=== PATIENT | male | born 1950 | race Caucasian/White ===

== ENCOUNTER 2019-05-28 09:01 | Outpatient (CLI) | payer MEDICARE, OTHER ==
--- NOTE | 2019-05-28 09:40 | ULT ---
Hepatic sonogram with duplex evaluation HISTORY: Abnormal liver function tests. Findings: Gallbladder is well distended. Slightly thickened wall is nonspecific in the setting of sav e fluid and hepatitis. No stones are apparent. Common duct is 0.5 cm. Liver demonstrates a nodular contour and is diffusely echogenic. No focal masses. Small amount of sav e fluid is present throughout the abdomen. Spleen measures up to 10.6 cm. No focal abnormalities. Good color and spectral Doppler flow within th e hepatic and splenic arteries. Portal venous flow is towards the liver. Hepatic venous flow is towards the IVC. IMPRESSION: Hepatic steatosis. Nodular contour of the liver may be related to developing cirrhosis. Small amount of ascites evident. No other findings of portal venous hypertension. Appropriate portal venous flow. No evidence of gallstones or biliary obstruction.
== END 2019-05-28 09:02 | disposition home or self-care (01) ==
LOC: SCSULT 09:01
PROVIDERS: ATTEND Internal Medicine Gastroenterology
DX: R19.7 Diarrhea, unspecified (principal); R94.5 Abnormal results of liver function studies; K76.0 Fatty (change of) liver, not elsewhere classified; R18.8 Other ascites
CPT/HCPCS: 76705

== ENCOUNTER 2019-06-19 07:26 | Outpatient (CLI) | payer MEDICARE, OTHER ==
[2019-06-19 07:57] LABS: Estimated GFR-MDRD - POC Greater than 90
--- NOTE | 2019-06-19 08:44 | CT ---
CT Abdomen Pelvis W WO con History: Abdominal pain. R19.7 Comparison: Ultrasound hepatic Doppler May 28, 2019. CT abdomen pelvis 2016 Findings: Lung bases are clear. No pericardial effusion. Similar to the comparison CT examination are numerous dilated loops of small bowel. This dilatation e xtends to the distal bowel with focal transition point in the midline lower abdomen with adjacent calcification series 5 image 73. There is an indwelling suprapubic catheter. Moderate volume ascites. Spleen is unremarkable. There are a few splenic granulomas. Pancreas is unremarkable. No retroperitoneal periaortic adenopathy. Moderate diverticular disease sigmoid colon. Cirrhotic contour of the liver. No abnormal hepatic arterial enhancing mass. No pseudocapsule. Portal vein is patent. Mild facet arthrosis lower lumbar spine. No acute osseous abnormality. The pancreas is normal. Adrenal glands are unremarkable. No hydronephrosis. Impression: 1. No hepatic mass. 2. Similar from 2016 chronic partial small bowel obstruction with transition point in the midline low er abdomen the mid ileum. 3. Large volume ascites and mild third spacing of fluid.
[2019-06-19] MEDS ORDERED: Iopamidol 370 76% 100 ML VIAL ONE (09:00)
== END 2019-06-19 07:27 | disposition home or self-care (01) ==
LOC: SCSCT 07:26
PROVIDERS: ATTEND Internal Medicine Gastroenterology
DX: K86.81 Exocrine pancreatic insufficiency (principal); R94.5 Abnormal results of liver function studies; K74.60 Unspecified cirrhosis of liver; R19.7 Diarrhea, unspecified; R18.8 Other ascites
CPT/HCPCS: 74178; 82565; Q9967

== ENCOUNTER 2019-08-01 06:55 | Day surgery (SDC) | payer MEDICARE, OTHER ==
[2019-07-31 13:43] VITALS: BMI 21.4
[2019-08-01 10:37] LABS: #Eosinphils 0.1 thou/uL (0.0-0.7); #Lymphocytes 1.5 thou/uL (1.20-3.40); #Monocytes 0.6 thou/uL (0.11-0.59); #Neutrophils 3.9 thou/uL (1.40-6.50); %Basophils 0.8 % (0.0-1.0); %Lymphocytes 24.3 % (21.0-51.0); %Monocytes 9.4 % (0.0-10.0); %Neutrophils 64.6 % (42.0-75.0); Hemoglobin 12.4 g/dL (14.0-18.0); Mean Corpuscular HGB CONC 32.9 g/dL (32.0-36.0); Mean Corpuscular Hemoglobin 31.1 pg (27.0-31.0); Mean Corpuscular Volume 94.7 fL (78.0-98.0); Mean Platelet Volume 6.6 fL (7.4-10.4); Platelet Count 168 thou/uL (130-400); RBC Distribution Width 13.3 % (11.5-14.5); Red Blood Cell (RBC) Count 3.98 mill/uL (4.70-6.10); White Blood Cell (WBC) Count 6.1 thou/uL (4.8-10.8)
[2019-08-01 10:48] LABS: Anion Gap 16 mmol/L (10-20); BUN (Urea Nitrogen) 23 mg/dL (8.4-25.7); Calc. Creatinine Clearance 68 mL/min (70-130); Calcium 8.8 mg/dL (7.8-10.44); Carbon Dioxide 21 mmol/L (23-31); Chloride 107 mmol/L (98-107); Estimated GFR-MDRD 79; Glucose 74 mg/dL (80-115); Potassium 3.9 mmol/L (3.5-5.1); Sodium 140 mmol/L (136-145)
== END 2019-08-01 11:00 | disposition home or self-care (01) ==
LOC: SDC 06:55
PROVIDERS: ATTEND Internal Medicine Gastroenterology
DX: K86.81 Exocrine pancreatic insufficiency (principal); K74.69 Other cirrhosis of liver; R19.7 Diarrhea, unspecified; Z53.8 Procedure and treatment not carried out for other reasons; Z79.899 Other long term (current) drug therapy; Z88.2 Allergy status to sulfonamides; Z88.8 Allergy status to other drugs, medicaments and biological substances
CPT/HCPCS: 36415; 80048; 85025

== ENCOUNTER 2020-06-22 10:01 | Inpatient (IN) | payer MEDICARE, OTHER ==
[2020-06-22 11:04] LABS: #Lymphocytes 1.8 thou/uL (1.20-3.40); #Monocytes 0.8 thou/uL (0.11-0.59); #Neutrophils 7.2 thou/uL (1.40-6.50); %Basophils 0.4 % (0.0-1.0); %Eosinophils 0.3 % (0.0-10.0); %Lymphocytes 18.4 % (21.0-51.0); %Monocytes 7.7 % (0.0-10.0); %Neutrophils 73.2 % (42.0-75.0); Mean Corpuscular HGB CONC 32.3 g/dL (32.0-36.0); Mean Corpuscular Hemoglobin 30.8 pg (27.0-31.0); Mean Corpuscular Volume 95.5 fL (78.0-98.0); Mean Platelet Volume 7.3 fL (7.4-10.4); Platelet Count 157 thou/uL (130-400); RBC Distribution Width 13.4 % (11.5-14.5); Red Blood Cell (RBC) Count 3.58 mill/uL (4.70-6.10); White Blood Cell (WBC) Count 9.8 thou/uL (4.8-10.8)
[2020-06-22 11:56] LABS: ALT (SGPT) 64 U/L (8-55); AST (SGOT) 90 U/L (5-34); Albumin 3.6 g/dL (3.4-4.8); Alkaline Phosphatase 93 U/L (40-110); Anion Gap 22 mmol/L (10-20); BUN (Urea Nitrogen) 48 mg/dL (8.4-25.7); Bilirubin, Total 0.5 mg/dL (0.2-1.2); Calc. Creatinine Clearance 0 mL/min (70-130); Calcium 7.6 mg/dL (7.8-10.44); Carbon Dioxide 13 mmol/L (23-31); Chloride 113 mmol/L (98-107); Estimated GFR-MDRD 31; Globulin 2.7 g/dL (2.4-3.5); Glucose 92 mg/dL (83-110); Lipase 26 U/L (8-78); Potassium 3.9 mmol/L (3.5-5.1); Protein, Total 6.3 g/dL (5.8-8.1); Sodium 144 mmol/L (136-145)
--- NOTE | 2020-06-22 12:17 | RAD ---
EXAM: Single view of the chest HISTORY: Bowel obstruction COMPARISON: 07/19/2019 FINDINGS: Single view of the chest shows a normal sized cardiomediastinal silhouette. There is a pac emaker with its tip in the right ventricle. There is no evidence of consolidation, mass, or pleural effusion. No acute osseous abnormality. Air-filled loops of bowel are seen beneath the diaphr agms. IMPRESSION: No evidence of acute cardiopulmonary disease
--- NOTE | 2020-06-22 13:40 | CT ---
CT Abdomen Pelvis WO Con History: Bowel obstruction Comparison: Abdomen pelvis CT June 2019 Findings: Lung bases relatively clear. No significant pericardial effusion. Relative to the prior 2 examinations the proximal small bowel dilatation has progressed. Small bowel obstruction to the left lower quadrant is again seen to is expected to be a stricture. Proximal small bowel is massively dilated up to 7.5 cm, worse from the comparison exam. No definite free intraperitoneal gas. Distal small bowel is nondilated. The colon is not dilated. No significant mesenteric edema. Calcified granulomas of the spleen. Pancreas atrophy. Gallbladder is mildly distended. There is unrem arkable. Aortic contour is nonaneurysmal and there is mild focal infrarenal abdominal aortic ectasia measuring up to 2.7 cm. Indwelling suprapubic catheter. Impression: Progressive small bowel obstruction of the left lower quadrant of the abdomen to what is felt to be a stricture. Surgical consultation is advised as a small bowel measures up to 7.5 cm in size. Patient is at risk for small bowel vascular compromise. On today's exam there is concern for a closed loop component to this obstruction as there is tethering and narrowing through what appears to be an internal hernia best seen on coronal images 55-62
[2020-06-22 15:12] LABS: Bacteria/HPF 4+ HPF (None Seen); Bilirubin Negative (Negative); Blood, Urine 3+ (Negative); Clarity Extra Turbid (Clear); Glucose, Urine (Dipstick) Normal (Negative); Ketone, Urine Trace mg/dL (Negative); Leukocyte 500 Leu/uL (Negative); Nitrite Negative (Negative); Protein, Urine (Dipstick) 200 mg/dL (Neg-Trace); RBC/HPF Greater than 50 HPF (0-3); Specific Gravity, Urine 1.024 (1.002-1.036); Transitional Epithelial 0-3 HPF (None Seen); Urobilinogen Normal mg/dL (Less than 2); WBC/HPF Greater than 50 HPF (0-3); pH, Urine 5.5 (5.0-9.0)
[2020-06-22] MEDS ORDERED: cefTRIAXone\\ROCEPHIN 2 GM VIAL ONE (15:38)
--- NOTE | 2020-06-22 15:47 | PDOC.HHP ---
Hospitalist HPI - History of Present Illness vomiting, diarrhea, dehydration History of Present Illness: Mr. Woodall is a 69 yo male with a PMH of bowel obstructions, CAD, cirrhosis, pancreatic insufficiency, GI bleeding and prostate cancer presents to the ED with a 1 day history of diarrhea and vomiting. He states it started with hiccups which then was followed by vomiting on Monday evening. He had eaten eggs, sausage and hashbrowns with gravy at a waffle house earlier that day and states this is not his usual diet regimen. His vomit initially contained food particles, but later became watery and a light brown color. He vomited a total of 4 times with his most recent episode being this morning at 4 am. He had some clear liquids after that with no subsequent vomiting. His vomiting is typically worsened by feeling hot, but today he feels cold. He states he is usually cold so when he started feeling warm is when the vomiting got worse. Yesterday, he began having diarrhea along with the vomiting. He describes it as a light brown color and mostly watery. He has chronic diarrhea and usually has two loose bowel movements daily, but has been going 6-8 times a day. He denied blood in his stools. He denied any recent antibiotic use. He has some abdominal pain associated with it. He reports an 8.5 lb weight loss since Monday evening. He did not take any medications to try and help his symptoms because of his long history of bowel obstruction and not wanting to risk disrupting that further. He's had similar episodes in the past and staying on a liquid diet works best for him. He denies fevers, but reports chills, low urine output, light headedness. He denies recent travel history. He denies sick contacts. ED Course: The patient presented with a blood pressure of 78 systolic. The rest of his vitals were normal. Labs showed a creatinine of 2.13, AST 90 and ALT 64. Urinalysis showed ketones, 500 leukocyte esterase, > 50 WBC, bacteria and h yaline casts. Chest X ray was normal. CT abdomen/pelvis showed progressive small bowel obstruction of the left lower quadrant. The patient received 1.5 L of fluids for dehydration. Pt. was given a dose of rocephin. General surgery was consulted and recommended no intervention currently Hospitalist ROS - Review of Systems Constitutional: reports: chills. denies: fever Eyes: denies: vision change, eyelid inflammation ENT: denies: throat pain Respiratory: reports: SOB with excertion. denies: cough, pleuritic pain Cardiovascular: reports: light headedness (when standing/sitting up too fast). denies: chest pain Gastrointestinal: reports: vomiting (this am), diarrhea. denies: hematochezia Genitourinary: denies: dysuria, frequency, hematuria Musculoskeletal: denies: other (headaches) Skin: denies: rash, lesions Neurological: denies: weakness, numbness Hospitalist History - Past Medical History Source: patient Cardiac: reports: CAD, CHF, Valve insufficiency Pulmonary: reports: heart attack [employer]: reports: Migraine (Bowel Obstruction) Heme/Onc: reports: Cancer (Prostatatic) Hepatobiliary: reports: Cirrhosis (Nonalcoholic) Renal/: reports: Chronic renal insuff Endocrine: reports: Diabetes (resolved) - Past Surgical History Past Surgical History: reports: Appendectomy Other Surgical History: back surgery L3-L4 - Family History Other Family History: father of lymphoma - Social History Smoking Status: Never smoker Alcohol: reports: None Drugs: reports: none Living Situation: With Family Domestic Violence: Negative Activity level: independent ambulation - Exam General Appearance: NAD, awake alert Eye: anicteric sclera ENT: normocephalic atraumatic, no oropharyngeal lesions, moist mucosa Neck: supple, symmetric, no JVD, no thyromegaly, no lymphadenopathy Heart: RRR, no murmur, no gallops, no rubs, normal peripheral pulses Respiratory: CTAB, no wheezes, no rales, no ronchi, normal chest expansion, no tachypnea Gastrointestinal: soft, non-tender, no palpable masses, no hepatomegaly, no splenomegaly, distended Gastrointestinal - other findings: intermittent hyperactive bowel sounds in RLQ Extremities: no cyanosis, 2+ LE edema Skin: no rashes, tenting Neurological: normal sensation to touch, no new deficit Psychiatric: normal affect, normal behavior, A&O x 3 Hospitalist Results - Labs Result Diagrams: 06/22/20 10:40 06/22/20 10:40 Lab results: WBC 9.8 thou/uL (4.8-10.8) 06/22/20 10:40 Hgb 11.0 g/dL (14.0-18.0) L 11/09/20 10:40 Hct 34.2 % (42.0-52.0) L 06/22/20 10:40 MCV 95.5 fL (78.0-98.0) 06/22/20 10:40 Plt Count 157 thou/uL (130-400) 06/22/20 10:40 Neutrophils % 73.2 % (42.0-75.0) 06/22/20 10:40 Sodium 144 mmol/L (136-145) 06/22/20 10:40 Potassium 3.9 mmol/L (3.5-5.1) 06/22/20 10:40 Chloride 113 mmol/L (98-107) H 06/22/20 10:40 Carbon Dioxide 13 mmol/L (23-31) L 06/22/20 10:40 BUN 48 mg/dL (8.4-25.7) H 06/22/20 10:40 Creatinine 2.13 mg/dL (0.7-1.3) H 06/22/20 10:40 Glucose 92 mg/dL (83-110) 06/22/20 10:40 Calcium 7.6 mg/dL (7.8-10.44) L 06/22/20 10:40 Total Bilirubin 0.5 mg/dL (0.2-1.2) 06/22/20 10:40 AST 90 U/L (5-34) H 06/22/20 10:40 ALT 64 U/L (8-55) H 06/22/20 10:40 Alkaline Phosphatase 93 U/L (40-110) 06/22/20 10:40 Serum Total Protein 6.3 g/dL (5.8-8.1) 06/22/20 10:40 Albumin 3.6 g/dL (3.4-4.8) 06/22/20 10:40 Lipase 26 U/L (8-78) 06/22/20 10:40 Urine Ketones Trace mg/dL (Negative) A 06/22/20 12:55 Urine Blood 3+ (Negative) A 06/22/20 12:55 Urine Nitrite Negative (Negative) 06/22/20 12:55 Ur Leukocyte Esterase 500 Isaiah/uL (Negative) A 06/22/20 12:55 Urine RBC Greater than 50 HPF (0-3) A 06/22/20 12:55 Urine WBC Greater than 50 HPF (0-3) A 06/22/20 12:55 Ur Squamous Epith Cells 4-6 HPF (0-3) A 06/22/20 12:55 Urine Bacteria 4+ HPF (None Seen) A 06/22/20 12:55 Hospitalist H&P A/P - Plan Plan: ECHO 2016: severe decrease in left systolic function, EF 20-25%. Global hypokinesis. Mild to moderate aortic stenosis with peak gradient of 19 mm Hg. Mild MR. Mild MR. Holbrook of left ventricle suggestive of thrombus CT abdomen: progressive small bowel obstruction of the left lower quadrant , small bowel measures 7.5 cm in size. Chest X-ray: no acute disease Mr. Woodall is a 69 yo male with a PMH of bowel obstructions, CAD, cirrhosis, pancreatic insufficiency, GI bleeding, and prostate cancer presents to the ED with a 1 day history of diarrhea, vomiting and dehydration. #Acute small bowel obstruction -CT abdomen showed progressive small bowel obstruction of the left lower quadrant. The small bowel measures 7.5 cm and is at risk for small bowel vascular compromise. -WBC are within normal range at 9.8 excluding a possible infectious process. - continue IV fluids, zofran. Will place on a liquid diet as tolerated #Diarrhea - likely from small bowel obstruction - stool cultures sent in the ER, will send C diff as well and ova and parasites #UTI -Urinalysis showed elevated leukocyte esterase, WBCs, RBCs, bacteria and hyaline casts. Pt. reports decreased output but no dysuria, hematuria. -Pt. given 1 dose of rocephin in the ED. Will continue. #Dehydration #Acute on Chronic hypotension (secondary to dehydration) #Oliguric Acute Kidney Injury on CKD stage III - patient's blood pressure is 70 systolic. He reports a normal BP of 80 systolic. BUN and creatinine are elevated at 48 and 2.13, respectively. Pt. reports decreased urine output. Physical exam shows skin tenting and decreased capillary refill. -Will start fluids. Clear liquids as tolerated. Hold home entresto, spironolactone and coreg. I discussed with the patient's disposition clerk Dr. Domingo who is in agreement with the plan. He states he does not believe his creatinine is normally this elevated. #Chronic systolic Heart Failure #Mild to moderate aortic stenosis #History of LV thrombus - ECHO 2016 showed EF 20-25%. He had an ECHO 04/2020 with EF of 40%. He had LV thrombus on ECHO 2016, which stated she has had cardiovascular surgeon see and it was determined to be encapsulated and not a risk of a stroke. He is not on any blood thinners. Per Dr. Domingo, patient has had significant GI bleeding in the past with anticoagulation - will hold cardiac meds for now. Continue aspirin 325 mg Chronic Pancreatic Insufficiency -Lipase 26-within normal range -Continue Creon Non-alcoholic Cirrhosis -AST 90; ALT 64, will monitor CAD -On aspirin 325 mg -Not on additional anticoagulants due to history of GI bleeding History of Prostate Cancer -Pt. currently has a suprapubic catheter in place Anemia - Hb 11.3, will monitor
[2020-06-22 17:59] VITALS: BMI 19.5
[2020-06-22] MEDS ORDERED: Sodium Chloride 0.9% 1,000 ML IV SCH (18:00)
[2020-06-22] MEDS ORDERED: Acetaminophen 325 MG TAB PO PRN (18:00)
[2020-06-22] MEDS ORDERED: Ondansetron ODT 4 MG TAB SL PRN (18:00)
[2020-06-22] MEDS ORDERED: Ondansetron PF 4 MG/2 ML Vial IVP PRN (18:00)
--- NOTE | 2020-06-22 18:59 | PDOC.FMACP ---
Advance Care Planning - Note Summary: Advanced Care Planning was discussed. The diagnosis, prognosis and goals of care were discussed. Appropriate forms and documentation to accomplish the goals of care were discussed. All questions were answered. The Palliative Care Team will be engaged to assist with completion of any outstanding forms that are needed. The patient deferred his decision making to his regarding code status. would like the patient to be a full code Time Spent (mins): 40
[2020-06-22] MEDS: Simethicone Chewable 80 MG TAB PO SCH (23:08)
--- NOTE | 2020-06-23 00:12 | CON ---
DATE OF CONSULTATION: 06/22/2020 REASON FOR CONSULTATION: Nausea, vomiting, and abnormal GI imaging showing possible small bowel obstruction. CONSULTING PROVIDER: Dr. Bossman Muniz. HISTORY OF PRESENT ILLNESS: The patient is a 69-year-old male with past medical history of coronary artery disease with ejection fraction of approximately 40% to 45%, cirrhosis secondary to congestive heart failure, pancreatic insufficiency secondary to recurrent pancreatitis, prostate cancer, and recurrent small-bowel obstructions, presenting with complaints of increased nausea, vomiting, abdominal pain, and diarrhea. He states that he was in his usual state of health until approximately Monday morning (after eating a large meal at the [facility] [employer] the day prior) when he had acute onset of midepigastric abdominal bloating/pain that he characterized as a cramping-aching type sensation that radiated to the periumbilical region, was intermittent, lasting 5 to 10 minutes in duration and reaching a severity of 5/10. The pain has been worse with eating beef, increased amounts of fiber in the past, including corn and better with having a bowel movement, passing flatus, or actual vomiting. The origin of this abdominal pain was very similar to the small bowel obstructions he has had in the past, at which point, the patient placed himself on a liquid diet in order to help relieve the obstruction as he has seen that in the past. However, this continued with nausea and vomiting x4 with the first three episodes consisting of more clear liquid and mucus. However, the last time the patient vomited, he did actually bring up solid material that was identifiable from the meal he had the day before at [facility]. He also endorsed seeing sudden onset of diarrhea that came on with nausea and vomiting, where the patient had approximately 5 to 6 semi-liquid bowel movements over the next 24 hours, but also states that he had not been taking his pancreatic enzymes during this episode and usually has more liquid stools when he misses dosing of his pancreatic enzymes. With the onset of this abdominal pain, like I said it prompted him to consume more of a liquid diet in an attempt to relieve the obstruction, but with worsening abdominal pain/pressure, he notified his outpatient GI physician (Dr. Draper), who then prompted the patient to come to the [facility] ER for further evaluation. While in the ER, he had a CT scan of the abdomen/pelvis that showed worsening of the small bowel dilatation in the left lower quadrant with small bowel measuring approximately 7.5 cm in diameter consistent with a small bowel obstruction. He was ultimately admitted to the hospital for further management of this condition with consultation of the General Surgery Service placed in the chart (although the service has not seen him at this particular point in time). Associated symptoms also include substernal pyrosis primarily with increased nausea and vomiting, increased hiccups, weight loss of approximately 8.5 pounds over the last 48 hours and decreased urine output as evidenced in his suprapubic catheter draining into this bag. Otherwise, he denies any fevers, chills, hematemesis, melena, hematochezia, dysphagia, odynophagia, or constipation. REVIEW OF SYSTEMS: A 10-category review of systems was obtained with all responses negative except for the pertinent positives as listed in HPI. PAST MEDICAL HISTORY: As per HPI. PAST SURGICAL HISTORY: Lysis of adhesions in 1959 secondary to an appendectomy that was performed the year before, tonsillectomy, back surgery, suprapubic catheter placement and defibrillator placement in 2017. SOCIAL HISTORY: He denies any tobacco, alcohol, or illicit drug use. FAMILY HISTORY: He denies any GI malignancies. OUTPATIENT MEDICATIONS: Reviewed. ALLERGIES: SULFA, SULFAMETHOXAZOLE, AND TRIMETHOPRIM. PHYSICAL EXAMINATION: VITAL SIGNS: Temperature 98.5, pulse 78, blood pressure 82/50, respiratory rate 19, saturating 98% on room air. GENERAL: The patient is lying in bed, in no acute distress. Alert and oriented x4. HEENT: Normocephalic and atraumatic. NECK: Supple. No JVD or scleral icterus noted. CARDIOVASCULAR: Regular rate and rhythm with no discernible murmurs, gallops, or rubs. RESPIRATORY: Clear to auscultation bilaterally with no discernible wheezes or rales. ABDOMEN: Normoactive bowel sounds. Soft, nondistended, mild tenderness to palpation around the suprapubic catheter site. No high-pitched bowel sounds were auscultated. EXTREMITIES: No cyanosis, clubbing, or edema. LABORATORY DATA: CBC with a white blood cell count of 9.8, hemoglobin 11, hematocrit 34.2, platelets 157. Chemistry with a sodium of 144, potassium 3.9, chloride 113, CO2 of 13, BUN 48, creatinine 2.13, glucose 92, AST 90, ALT 64, alkaline phosphatase 93, total bilirubin 0.5, lipase 26. IMAGING DATA: CT of the abdomen and pelvis was obtained on June 22, 2020, which showed relative to the prior 2 examinations, the small bowel dilatation has progressed with a small bowel obstruction seen in the left lower quadrant with the small bowel proximal to this transition point being massively dilated up to 7.5 cm, worse when compared to prior examination. There was no evidence of free intraperitoneal gas and the distal small bowel was nondilated with a nondilated colon also observed. There was no significant mesenteric edema in addition to an indwelling suprapubic catheter that was in appropriate position. Furthermore, in the impression of the read, there was concern for closed loop component to this obstruction as there was tethering and narrowing through what appears to be an internal hernia on imaging as well. 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 Partial small bowel obstruction: The patient is presenting with acute onset of nausea, vomiting, abdominal pain, and diarrhea consistent with his prior bouts of small-bowel obstructions in the past. However, on imaging obtained in the ER during this admission, he has had worsening of the small bowel obstruction with a transition point in the left lower quadrant and dilation of the proximal small bowel up to 7.5 cm in diameter. He also does have a significant metabolic acidosis going on concerning for an ischemic type process going on in that region. However, on physical examination today, the patient has normoactive bowel sounds, is soft in that region and there are no high-pitched bowel sounds to suggest an ongoing obstructive process. At this point, the clinical history seems more consistent with a partial small bowel obstruction (especially with passing flatus and having diarrhea) whereas his imaging and labs indicate more towards a complete obstructive-type process. Given his current clinical status, I am more inclined lean on the partial small bowel obstruction side of things and monitor the patient for now. He has refused NG tube placement during this admission thus far and I would continue to hold on that for now unless the patient has worsening of his nausea, vomiting, or abdominal pain. However, further imaging is required in order to re-evaluate this bowel obstruction with probable contrasted study in the morning. RECOMMENDATIONS: 1. Would place the patient n.p.o. for now in light of possible partial or complete small-bowel obstruction. 2. Would continue to hold on NG tube per patient preference. However, if the patient has worsening nausea, vomiting, or abdominal pain overnight, I would have a low threshold towards placing the tube. 3. Strongly recommend consultation of the General Surgery Service given the presence of either a partial or complete small-bowel obstruction. Given his concurrent medical history, the patient is at increased risk for periprocedural complications and may need to be transferred to [facility] in [place] if surgery is required. I would have a low threshold to transfer this patient to a tertiary care facility if he has recurrence of his nausea, vomiting, and abdominal pain. 4. Would plan for small-bowel follow-through in the morning for further evaluation of the intraluminal small bowel and re-evaluation of the obstruction at that time. We will continue to follow. Please call with any questions. Job ID: [id number]
[2020-06-23 04:44] LABS: #Eosinphils 0.1 thou/uL (0.0-0.7); #Lymphocytes 1.7 thou/uL (1.20-3.40); #Monocytes 0.6 thou/uL (0.11-0.59); #Neutrophils 5.1 thou/uL (1.40-6.50); %Basophils 0.2 % (0.0-1.0); %Eosinophils 1.2 % (0.0-10.0); %Lymphocytes 22.2 % (21.0-51.0); %Monocytes 7.9 % (0.0-10.0); %Neutrophils 68.4 % (42.0-75.0); Hemoglobin 10.1 g/dL (14.0-18.0); Mean Corpuscular HGB CONC 32.3 g/dL (32.0-36.0); Mean Corpuscular Hemoglobin 31.7 pg (27.0-31.0); Mean Corpuscular Volume 98.3 fL (78.0-98.0); Mean Platelet Volume 7.6 fL (7.4-10.4); Platelet Count 120 thou/uL (130-400); RBC Distribution Width 13.5 % (11.5-14.5); White Blood Cell (WBC) Count 7.5 thou/uL (4.8-10.8)
[2020-06-23 05:06] LABS: Anion Gap 20 mmol/L (10-20); BUN (Urea Nitrogen) 44 mg/dL (8.4-25.7); Calc. Creatinine Clearance 39 mL/min (70-130); Calcium 7.1 mg/dL (7.8-10.44); Chloride 119 mmol/L (98-107); Estimated GFR-MDRD 46; Potassium 3.3 mmol/L (3.5-5.1); Sodium 145 mmol/L (136-145)
[2020-06-23 05:10] LABS: Carbon Dioxide 9 mmol/L (23-31); Glucose 58 mg/dL (83-110)
--- NOTE | 2020-06-23 06:07 | PDOC.EVN ---
Event Note - Event Note Event Note: called by RN, labs indicting hypoglycemia and worsening metabolic acidosis. I examined the patient and his abdomen is soft, he is denying any distress. I will change his fluid to d5w and 2 amps of bicarb will check another BMP in the afternoon.
[2020-06-23] MEDS ORDERED: Sodium Bicarbonate 100 MEQ in Dextrose 5% in Water 1,000 ML IV SCH (06:15)
[2020-06-23] MEDS ORDERED: Potassium Chloride 20 MEQ in Premix Bag 1 BAG IVPB SCH (10:30)
[2020-06-23] MEDS: Aspirin Chewable 81 MG TAB PO SCH (10:49)
[2020-06-23] MEDS: Simethicone Chewable 80 MG TAB PO SCH ×2 (10:50→20:53)
[2020-06-23] MEDS: Pancrelipase DR 12,000 1 CAP PO SCH ×3 (10:50→17:25)
[2020-06-23] MEDS ORDERED: MD-Gastroview 120 ML BOT ONE (11:06)
--- NOTE | 2020-06-23 13:59 | RAD ---
Exam: Gastrografin small bowel HISTORY: Evaluate for bowel obstruction. FINDINGS: Initial wheel buffer radiograph of the abdomen demonstrates distended air-filled loop of bowel in the epigastric region. Patient was administered Gastrografin opacifies the stomach. Multiple distended small bowel loops are opacified. Contrast does pass from the stomach, through the distended colon down to the level of the rectum on the 2 hour images. IMPRESSION: Significant small bowel and colon distention. No evidence of associated high-grade obstru ction.
[2020-06-23 15:04] LABS: BUN (Urea Nitrogen) 43 mg/dL (8.4-25.7); Calc. Creatinine Clearance 38 mL/min (70-130); Estimated GFR-MDRD 43; Glucose 73 mg/dL (83-110); Potassium 4.6 mmol/L (3.5-5.1); Sodium 151 mmol/L (136-145)
[2020-06-23 15:18] LABS: Carbon Dioxide Less than 8 mmol/L (23-31); Chloride 126 mmol/L (98-107)
--- NOTE | 2020-06-23 15:27 | PDOC.HOSPP ---
- Subjective Encounter Date: 06/23/20 Encounter Time: 08:10 Subjective: F/u : small bowel obstruction The patient had a bowel movement after his small bowel follow through. He now seems to be having loose stools again. He denies nausea or vomiting. He has noticed an increase in his urine output. He states he is feeling fine today overall While walking around the room, his heart rate went up to 140 in atrial flutter. He denied palpitations. He denies any symptoms of headache, shortness of breath or lightheadedness. EKG showed normal sinus rhythm. His blood sugar was 50 due to being NPO all day. He drank juice and reported instant improvement in his energy level. - Objective Vital Signs & Weight: Vital Signs (12 hours) Temp Pulse Resp BP Pulse Ox 06/23/20 14:08 98.1 F 114 H 16 98/67 98 06/23/20 07:37 98.6 F 75 15 84/51 L 100 06/23/20 05:04 97.9 F 20 77/52 L 98 Weight Weight 139 lb 3.2 oz I&O: 06/22/20 06/23/20 06/24/20 06:59 06:59 06:59 Intake Total 50 Output Total 275 Balance -225 Result Diagrams: 06/23/20 03:55 06/23/20 14:09 Additional Labs: Accuchecks 06/23/20 14:20 POC Glucose 58 L* Hospitalist ROS - Review of Systems Constitutional: denies: fever Respiratory: denies: cough Cardiovascular: denies: chest pain, light headedness Gastrointestinal: denies: nausea, vomiting, abdominal pain Genitourinary: denies: dysuria Neurological: denies: weakness - Medication Medications: Active Medications Generic Name Dose Route Start Last Admin Trade Name Freq PRN Reason Stop Dose Admin Lipase/Protease/Amylase 3 cap 06/23/20 08:00 06/23/20 14:19 Pancrelipase 12,000 1 Cap PO Not Given [facility] Aspirin 324 mg 06/23/20 09:00 06/23/20 10:49 Aspirin Chewable 81 Mg Tab PO Not Given DAILY [facility] Simethicone 180 mg 06/22/20 21:00 06/23/20 10:50 Simethicone Chewable 80 Mg Tab PO Not Given BID [facility] - Exam General Appearance: NAD, awake alert Eye: anicteric sclera Heart: RRR, no murmur, no gallops, no rubs, normal peripheral pulses Respiratory: CTAB, no wheezes, no rales, no ronchi, normal chest expansion, no tachypnea Gastrointestinal: soft, non-tender, non-distended, normal bowel sounds, no palpable masses, no hepatomegaly, no splenomegaly Extremities: no cyanosis, no clubbing, 1+ LE edema Skin: normal turgor, no lesions, no rashes Psychiatric: normal affect, normal behavior, A&O x 3 Hosp A/P - Plan CT abdomen: progressive small bowel obstruction of the left lower quadrant; small bowel measures 7.5 cm Chest X-ray: no acute disease Small Bowel X-ray: Significant small bowel and colon distention. No evidence of associated high grade obstruction. Mr. Woodall is a 69 yo male with a PMH of bowel obsructions, CAD, cirrhosis, pancreatic insuffuciency, GI bleeding, and prostate cancer presented with diarrhea, vomiting and dehydration. Acute Small Bowel Obstruction Ileus -CT abdomen showed progressive small bowel obstruction of the LLQ yesterday. Today, his small bowel X-ray showed significant small bowel and colon distention with no evidence of a high grade obstruction. -will start . on clear fluid diet. - general surgery has been consulted due to recurrent episodes of obstruction. May need a more definitive surgery which can only be done in [place] Diarrhea -Stool cultures were negative for C. diff, E. coli, ova and parasites. GI is following Possible Atrial Flutter - noted on telemetry, however EKG was normal. -12-lead EKG and magnesium ordered. Will resume coreg and hold for SBP < 90. Hypernatremia Hyperchloremia -Na: 151; Cl: 126; Pt. has been N.P.O. -Discontinued NaCl and place him on a liquid diet in the meantime. Will order BMP for the morning. Hypokalemia - resolved -Potassium was 3.3 this morning. It was replaced and is now up to 4.6. -Will continue to monitor UTI -Urinalysis showed elevated leukocyte esterase, WBCs, RBCs, bacteria and hyaline casts. Was started on IV ceftriaxone empirically. Send urine culture #Dehydration #Acute on Chronic Hypotension #Oliguric Acute Kidney Injury on CKD-Stage III -Patient's blood pressure has increased to 98 systolic. Creatinine has improved to 1.6 . Will discontinue IV fluids and do oral hydration given his systolic heart failure history since he no longer has nausea/vomiting #Chronic Systolic Heart Failure #Mild to Moderate Aortic Stenosis #History of LV Thrombus -ECHO 2015 showed an EF 20-25% and LV thrombus that was determined to be encapsulated and not at risk of stroke. ECHO 04/2020 showed and EF of 40%. Per Dr. Domingo, patient has a significant history of GI bleeding with anticoa gulation. 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 Will monitor CAD -On aspirin 325 mg -Not on additional anticoagulants due to history of GI bleeding. History of Prostate Cancer -Suprapubic catheter in place Anemia -Hgb 10.1, will monitor Attending addendum: I have seen and examined patient with the student and agree with the assessment and plan. Patient is now having diarrhea again . He no longer has nausea/vomiting. Bowel sounds are intact with no tenderness. SBFT shows ileus. General surgery consult pending , may need surgery to prevent recurrent obstructions which may need to be done in [place]
[2020-06-23 15:40] LABS: SARS-CoV-2 MS2 Positive; SARS-CoV-2 N Gene Negative; SARS-CoV-2 S Gene Negative; SARS-CoV-2 by NAA Not Detected (NotDetected); SARS-CoV-2 orf1ab Negative
[2020-06-23] MEDS ORDERED: cefTRIAXone\\ROCEPHIN 1 GM in Sodium Chloride 0.9% 100 ML IVPB SCH (16:00)
[2020-06-23] MEDS: Carvedilol 3.125 MG TAB PO SCH (16:57)
--- NOTE | 2020-06-23 18:42 | PRG ---
DATE OF SERVICE: 06/23/2020 SUBJECTIVE: Mr. Woodall has had dramatic improvement in his abdominal pain. No further nausea or vomiting. He tolerated all the oral contrast for small bowel follow-through today and has already been passing it in stool. OBJECTIVE: VITAL SIGNS: Temperature 97.6, pulse 104, blood pressure 92/63, and 100% oxygen saturation on room air. GENERAL: No acute distress. Sitting up in bed comfortably. HEART: Regular. Tachycardia. LUNGS: Clear to auscultation bilaterally. ABDOMEN: Bowel sounds are present. Soft, nontender to palpation. EXTREMITIES: No peripheral edema. LABORATORY STUDIES: COVID PCR negative. Urinalysis shows greater than 50 wbc's. Sodium 151, potassium 4.6, BUN 43, creatinine 1.61, glucose 58, magnesium 1.2. WBC 7.5, hemoglobin 10.1, and platelets 120. IMAGING STUDIES: Small-bowel follow-through from earlier today demonstrated multiple opacified distended small-bowel loops, but the contrast passes all the way through the distended colon down to the rectum within 2 hours. There is no evidence of high-grade obstruction, though there is significant small bowel and colon distention. ASSESSMENT AND PLAN: 1. Recurrent partial mechanical small-bowel obstruction, this episode appears to have resolved. 2. Intraabdominal adhesive disease. This has been a recurrent issue for the patient over the years. On presentation, the CT suggested a transition zone in the small bowel in the left lower quadrant with massive dilation of the small bowel proximal to the area of obstruction. Now on small-bowel follow-through, this process seems to have resolved. This is likely secondary to dietary indiscretion. I reviewed with the patient the importance of sticking with a low residue diet going forward. The patient has been told he would be quite high risk for surgery and that is certainly not urgent at this time. If he did need to undergo surgical evaluation, it would probably best be done in [place] as per his surveillance systems analyst. There is really nothing further from a GI standpoint at this time. He has followup with Dr. Draper, physician workforce development assistant already set within the next few weeks. GI will go ahead and sign off, but please call back anytime with questions or concerns. Job ID: [id number]
[2020-06-24 05:10] LABS: Hemoglobin 9.7 g/dL (14.0-18.0); Mean Corpuscular HGB CONC 33.5 g/dL (32.0-36.0); Mean Corpuscular Hemoglobin 32.6 pg (27.0-31.0); Mean Corpuscular Volume 97.2 fL (78.0-98.0); Mean Platelet Volume 7.5 fL (7.4-10.4); Platelet Count 114 thou/uL (130-400); RBC Distribution Width 13.2 % (11.5-14.5); Red Blood Cell (RBC) Count 2.98 mill/uL (4.70-6.10); White Blood Cell (WBC) Count 8.1 thou/uL (4.8-10.8)
[2020-06-24] MEDS ORDERED: Magnesium 2 GM/50 ML 2 GM in Premix Bag 1 BAG IVPB SCH (08:45)
[2020-06-24] MEDS: Aspirin Chewable 81 MG TAB PO SCH (09:04)
[2020-06-24] MEDS: Pancrelipase DR 12,000 1 CAP PO SCH ×2 (09:04→12:45)
[2020-06-24] MEDS: Carvedilol 3.125 MG TAB PO SCH (09:53)
[2020-06-24 09:55] LABS: BUN (Urea Nitrogen) 37 mg/dL (8.4-25.7); Calc. Creatinine Clearance 37 mL/min (70-130); Calcium 7.3 mg/dL (7.8-10.44); Carbon Dioxide 12 mmol/L (23-31); Chloride 117 mmol/L (98-107); Estimated GFR-MDRD 43; Glucose 97 mg/dL (83-110); Sodium 143 mmol/L (136-145)
[2020-06-24 10:16] LABS: Anion Gap 17 mmol/L (10-20)
[2020-06-24] MEDS: Simethicone Chewable 80 MG TAB PO SCH (10:17)
[2020-06-24] MEDS ORDERED: Potassium Chloride 20 MEQ TAB PO SCH (11:15)
[2020-06-24 12:49] VITALS: BP 84/57; TEMP 98.5
--- NOTE | 2020-06-24 14:11 | CON ---
DATE OF CONSULTATION: 06/23/2020 REQUESTING PHYSICIAN: Dr. Elisha Darling. HISTORY OF PRESENT ILLNESS: This is a 69-year-old man with history of chronic pancreatic insufficiency secondary to chronic pancreatitis. He also has liver cirrhosis and coronary artery disease with chronic cardiomyopathy. Last echocardiogram showed an EF of 40%. At baseline, the patient endorses multiple loose bowel movements daily. He recalls having a large meal at the [facility] on 06/20/2020. A few hours after eating, the patient was woken with severe epigastric crampy abdominal pain. Shortly after that, he is experienced some hiccuping followed by multiple episodes of nausea and nonbilious emesis. He also recalls seeing some undigested food in some of his vomitus the next day. Meanwhile, he has been having loose bowel movements. He recalls that the pain was relieved after the emesis on 06/21/2020. The patient continues to have loose bowel movements and was afraid of eating. He has had previous small bowel obstructions and was, therefore, afraid that he may be having another bout of small bowel obstruction. His workup here included abdominal x-rays followed by CT scan of the abdomen and pelvis, which was suggestive of recurrent small bowel obstruction. At the time of my evaluation, the patient is awake and alert. He denies any pain since post emesis of 06/22/2020. He had a small-bowel follow-through done early this morning and at 2 hours, the contrast is in the rectum. Meanwhile, he has had multiple loose bowel movements and is passing flatus. Part of his last bowel movement was semi-formed. The patient denies any fevers or chills. PAST MEDICAL HISTORY: Significant for chronic pancreatitis, liver cirrhosis, chronic pancreatic insufficiency, coronary artery disease, chronic congestive heart failure, previous small bowel obstruction, and prostatic carcinoma. PAST SURGICAL HISTORY: Pertinent for appendectomy, childhood tonsillectomy and adenoidectomy, back surgery, suprapubic catheter placement, and defibrillator placement in 2017. He has also had a laparotomy with lysis of adhesion following appendectomy. He had a defibrillator placement in 2017. SOCIAL HISTORY: The patient denies any alcohol, cigarette smoking, or illicit drug abuse. FAMILY HISTORY: Noncontributory for this patient's age. PREHOSPITALIZATION MEDICATION: Includes: 1. Carvedilol 3.125 mg p.o. daily. 2. Potassium chloride 20 mEq p.o. daily. 3. Bumetanide 1 mg p.o. daily. 4. Entresto p.o. b.i.d. 5. Spironolactone 25 mg p.o. daily. 6. Aspirin 81 mg p.o. daily. 7. Lipase/protease/amylase 36,000 units t.i.d. with meals. 8. Simethicone 180 mg p.o. b.i.d. ALLERGIES: TO SULFA DRUGS. REVIEW OF SYSTEMS: Ten-point review of systems essentially unremarkable except as stated in the past medical history and chief complaint. PHYSICAL EXAMINATION: GENERAL: This reveals a 69-year-old normally developed man, who is otherwise coherent, interactive, and appears stated age. The patient is alert and oriented x3, appears to be in no acute distress at time of my evaluation. VITAL SIGNS: His vital signs currently include blood pressure 98/67, pulse is 104, respiratory rate is 16, temperature is 97.6 degrees Fahrenheit, and oxygen saturation 100% on room air. HEENT: Reveals normocephalic and atraumatic. Pupils are equal, round, reactive to light and accommodation. HEART: Reveals regular rate and rhythm. LUNGS: Clear to auscultation bilaterally. ABDOMEN: Soft, nontender, and nondistended. Liver and spleen nonpalpable below costal margin. NEUROLOGIC: Reveals no focal deficits present. LABORATORY FINDINGS: Today include a CBC with 7500 white blood cells, hemoglobin and hematocrit of 10.1 and 31.4 respectively. Platelet count is 120,000. Metabolic profile; sodium 151, potassium 4.6, chloride is 126, bicarb is less than 8, BUN 43, creatinine is 1.61, glucose is 58, magnesium is 1.2. Total bilirubin is 0.5, AST and ALT are 90 and 64 respectively. Serum lipase yesterday was normal at 26. I have personally reviewed all radiographic studies including a CT scan of the abdomen and pelvis, which revealed dilated loops of small bowel with decompressed colon. Small bowel follow-through, which was obtained subsequently reveals normal transit time at 2 hours with contrast in the rectum. IMPRESSION: Probable gastrointestinal dysmotility and no clinical evidence of acute small-bowel obstruction at this time. RECOMMENDATIONS: 1. There is no acute surgical indication for this patient at this time. 2. I have recommended resumption of clear liquid diet and advance diet as tolerated. 3. If the patient develops recurrent abdominal pain with nausea and vomiting, suggestive of recurrent small-bowel obstruction, consideration will be given at that time to nasogastric tube decompression. In any case, I have informed the patient that there is no surgical indication at this time. 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 Thank you again, Dr. Darling for allowing me the opportunity to participate in care of this patient. General Surgery will sign off at this time and be available to re-evaluate the patient on demand. Job ID: [id number] MTDD
--- NOTE | 2020-06-24 19:11 | PDOC.DS.DS ---
Provider - Provider Date of Admission: 06/23/20 10:14 Date of Discharge: 06/24/20 Admitting Provider: Elisha Darling MD Consultations: Gastroentrology (Dr. Real Beauchamp), General Surgery (Dr. Neal Schultz) Primary Care Physician: Frandy Oliva MD Course - Hospital Course Hospital Course: Brief HPI: This is a 69 year old male with nonalcoholic cirrhosis, CHF, pancreatic insufficiency, prostate cancer with suprapubic catheter who presented with diarrhea, vomiting for 24 hours after eating some sausage at [employer] the day prior. He reported losing 8 pounds in one day. He called Dr. Draper office who advised him to come to the ER due his history of recurrent small bowel obstructions. When the patient presented to the ER his CT scan showed progressive small bowel obstruction of the left lower quadrant. He was admitted for further work-up. HOSPITAL COURSE: Acute Small Bowel Obstruction: Patient was originally kept n.p.o. GI was consulted and ordered a small bowel follow-through. Small bowel follow-through the following day showed no obstruction, and just small bowel and colon distention. Patient was started on a clear liquid diet which he tolerated well and had bowel movements. On 06/24 the patient was advanced to a regular diet. He had no nausea or vomiting. General surgery was consulted due to his history of recurrent obstructions and recommended no surgical intervention. Acute on Chronic Diarrhea likely from gastroenteritis: Stool cultures were negative for C. diff, E. coli, ova and parasites. GI is following as an outaptient Possible Atrial Flutter: Patient's Coreg was initially held on admission due to hypotension. On 06/23 the patient wanted to atrial flutter with his heart rate going up to 140 while ambulating. He was restarted on Coreg 3.125 mg twice daily. I spoke to his fur trimming machine operator Dr. Domingo who is in agreement. He will call him to make an appointment. UTI: -Urinalysis showed elevated leukocyte esterase, WBCs, RBCs, bacteria and hyaline casts. Urine culture was uncollected by the time of discharge for unclear reason. He was started on IV ceftriaxone empirically. He will be discharged on cefdinir for five more days to complete a seven day course of antibiotics. Hypernatremia: Patient sodium went up to 151 which went down to 143 after his diet was restarted. Hypokalemia (likely from diarrhea): Patient's potassium was 3.0 on the day of discharge. He was discharged with potassium supplements as needed Acute Dehydration: the patient reporting having systolic blood pressures of 88 while at home. His Coreg was initially held but resumed. His Entresto and spironolactone were held with permission of his fur trimming machine operator. He will follow up with his fur trimming machine operator next week with regards to restarting his other medicines PIPPA: Patient presented with a creatinine of 2.1. With IV fluids this improved to 1.6. Patient's baseline creatinine was normal earlier this year and was 1.7 in April. I have discussed with his fur trimming machine operator Dr. Dixon who is in agree ment holding his spironolactone and Entresto for now until his creatinine improves Pertinent Studies: CT abdomen: progressive small bowel obstruction of the left lower quadrant; small bowel measures 7.5 cm Chest X-ray: no acute disease Small Bowel X-ray: Significant small bowel and colon distention. No evidence of associated high grade obstruction. Procedures: None Resuscitation Status: 06/22/20 18:38 Resuscitation Status Routine Resuscitation Status: FULL: Full Resuscitation - Labs Lab Results: 06/24/20 04:19 06/24/20 09:31 Abnormal Lab Results - Last 48 hrs 06/23/20 03:55: Potassium 3.3 L, Chloride 119 H, Carbon Dioxide 9 L*, BUN 44 H, Creatinine 1.51 H, Calcium 7.1 L 06/23/20 03:55: RBC 3.20 L, Hgb 10.1 L, Hct 31.4 L, MCV 98.3 H, MCH 31.7 H, Plt Count 120 L, Monocytes # 0.6 H 06/23/20 14:09: Sodium 151 H, Chloride 126 H*, Carbon Dioxide Less than 8 L*, BUN 43 H, Creatinine 1.61 H 06/23/20 14:09: Magnesium 1.2 L 06/24/20 04:19: RBC 2.98 L, Hgb 9.7 L, Hct 29.0 L, MCH 32.6 H, Plt Count 114 L 06/24/20 09:31: Potassium 3.0 L, Chloride 117 H, Carbon Dioxide 12 L, BUN 37 H, Creatinine 1.61 H, Calcium 7.3 L Microbiology - Entire Visit 06/22/20 15:17 Stool - Pending Stool Culture - Preliminary 06/22/20 15:17 Stool C. difficile GDH Antigen & Toxins - Final 06/22/20 15:17 Stool Rapid Parasite Screen - Final 06/22/20 15:17 Stool - Pending Campylobacter Antigen Assay - Final 06/22/20 15:17 Stool - Pending Shiga Toxin Test - Final 06/22/20 15:17 Stool - Pending Escherichia coli 0157 Culture - Final - Physical Exam Vitals: Vital Signs (12 hours) Temp Pulse Pulse Resp BP BP BP 06/24/20 12:48 98.5 F 63 19 84/57 L 06/24/20 10:05 60 90/61 06/24/20 08:23 98.7 F 85 20 110/72 Pulse Ox 06/24/20 12:48 98 06/24/20 10:05 06/24/20 08:23 98 Weight Weight 136 lb 12.8 oz Physical Exam: The patient was seen and examined on the day of discharge. Problem - Discharge Plan Plan of Treatment: Patient should call Dr. De La Vega' lead medical technologist Monika to set up an appointment - Time spent with Patient (mins): 30 Plan - Discharge Medications Prescriptions: Cefdinir 300 mg PO Q12HR #10 capsule Carvedilol 3.125 mg PO BID #60 tablet Potassium Chloride [K-Dur] 20 meq PO DAILY PRN #7 tab PRN Reason: Diarrhea/Loose Stools Magnesium 400 mg PO DAILY PRN #14 tablet PRN Reason: Diarrhea/Loose Stools Home Medications: Medication Instructions Recorded Confirmed Type Simethicone [Anti-Gas] 180 mg PO BID 09/30/15 06/23/20 History Aspirin Chewable [Aspirin Chewable 325 mg PO DAILY 07/31/19 06/23/20 History Tablet] Bumetanide 1 mg PO DAILY 07/31/19 06/22/20 History Lipase/Protease/Amylase [Joel THAPA 1 tab PO TID-WM 07/31/19 06/22/20 History 36,000 Units] Potassium Chloride [K-Dur] 20 meq PO DAILY 06/23/20 06/23/20 History Carvedilol 3.125 mg PO BID #60 tablet 06/24/20 Rx Cefdinir 300 mg PO Q12HR #10 capsule 06/24/20 Rx Magnesium 400 mg PO DAILY PRN #14 tablet 06/24/20 Rx Potassium Chloride [K-Dur] 20 meq PO DAILY PRN #7 tab 06/24/20 Rx Allergies: Sulfa (Sulfonamide Antibiotics) Allergy (Verified 11/04/19 17:55) high temperature, convulsions sulfamethoxazole [From Bactrim] Allergy (Verified 11/04/19 17:55) trimethoprim [From Bactrim] Allergy (Verified 11/04/19 17:55) - Discharge Instructions Activity:: Activity as Tolerated Nourishment:: Heart Healthy Diet - Follow up Plan Referrals: Frandy Oliva MD [Primary Care Provider] - 7 Days (please call office for follow up appointment.) Disposition: HOME Quality - Care Measures CORE MEASURES:: N/A
== END 2020-06-24 13:14 | disposition home or self-care (01) | DRG 389 ==
LOC: ERS 10:01 → ERHOLD 15:45 → 2NO 17:34 → OBSVTOIN 06-23 10:14
PROVIDERS: ADMIT Internal Medicine; ATTEND Internal Medicine
DX: K56.600 Partial intestinal obstruction, unspecified as to cause (principal); N39.0 Urinary tract infection, site not specified; N17.9 Acute kidney failure, unspecified; I50.22 Chronic systolic (congestive) heart failure; E87.2 Acidosis; E87.0 Hyperosmolality and hypernatremia; I42.9 Cardiomyopathy, unspecified; E11.22 Type 2 diabetes mellitus with diabetic chronic kidney disease; G43.909 Migraine, unspecified, not intractable, without status migrainosus; I25.10 Atherosclerotic heart disease of native coronary artery without angina pectoris; K74.60 Unspecified cirrhosis of liver; E86.0 Dehydration; N18.30 Chronic kidney disease, stage 3 unspecified; K86.89 Other specified diseases of pancreas; K52.9 Noninfective gastroenteritis and colitis, unspecified; Z20.828 Contact with and (suspected) exposure to other viral communicable diseases; I35.0 Nonrheumatic aortic (valve) stenosis; E87.6 Hypokalemia; Z85.46 Personal history of malignant neoplasm of prostate; Z90.49 Acquired absence of other specified parts of digestive tract; Z88.2 Allergy status to sulfonamides; Z88.8 Allergy status to other drugs, medicaments and biological substances
CPT/HCPCS: 36415; 36416; 71045; 74176; 74250; 80048; 80053; 81003; 81015; 83690; 83735; 85025; 85027; 87045; 87046; 87324; 87328; 87329; 87427; 87449; 87635; 93005; 93010; 96361; 96365; G0378; J0696; J3475; J3480; J3490; J7070; Q9963; U0003

== ENCOUNTER 2020-10-08 09:22 | Emergency (ER) | payer MEDICARE, OTHER ==
[2020-10-08 09:58] LABS: #Basophils 0.1 thou/uL (0.0-0.2); #Eosinphils 0.1 thou/uL (0.0-0.7); #Lymphocytes 1.5 thou/uL (1.20-3.40); #Monocytes 0.7 thou/uL (0.11-0.59); #Neutrophils 5.8 thou/uL (1.40-6.50); %Basophils 0.6 % (0.0-1.0); %Eosinophils 0.7 % (0.0-10.0); %Lymphocytes 18.6 % (21.0-51.0); %Monocytes 8.6 % (0.0-10.0); %Neutrophils 71.4 % (42.0-75.0); Hemoglobin 10.6 g/dL (14.0-18.0); Mean Corpuscular HGB CONC 33.3 g/dL (32.0-36.0); Mean Corpuscular Hemoglobin 31.1 pg (27.0-31.0); Mean Corpuscular Volume 93.4 fL (78.0-98.0); Platelet Count 232 thou/uL (130-400); RBC Distribution Width 13.9 % (11.5-14.5); Red Blood Cell (RBC) Count 3.41 mill/uL (4.70-6.10); White Blood Cell (WBC) Count 8.1 thou/uL (4.8-10.8)
[2020-10-08 10:25] LABS: ALT (SGPT) 45 U/L (8-55); AST (SGOT) 67 U/L (5-34); Albumin 3.7 g/dL (3.4-4.8); Alkaline Phosphatase 72 U/L (40-110); Anion Gap 20 mmol/L (10-20); BUN (Urea Nitrogen) 47 mg/dL (8.4-25.7); Bilirubin, Total 0.6 mg/dL (0.2-1.2); CK (CPK) 61 U/L (30-200); Calc. Creatinine Clearance 0 mL/min (70-130); Calcium 8.2 mg/dL (7.8-10.44); Carbon Dioxide 15 mmol/L (23-31); Chloride 106 mmol/L (98-107); Glucose 102 mg/dL (83-110); Lipase 37 U/L (8-78); Potassium 4.8 mmol/L (3.5-5.1); Protein, Total 6.7 g/dL (5.8-8.1); Sodium 136 mmol/L (136-145)
[2020-10-08 12:27] LABS: Anion Gap 18 mmol/L (10-20); BUN (Urea Nitrogen) 44 mg/dL (8.4-25.7); Calc. Creatinine Clearance 0 mL/min (70-130); Calcium 7.7 mg/dL (7.8-10.44); Carbon Dioxide 14 mmol/L (23-31); Chloride 112 mmol/L (98-107); Glucose 82 mg/dL (83-110); Potassium 4.3 mmol/L (3.5-5.1); Sodium 140 mmol/L (136-145)
== END 2020-10-08 12:52 | disposition home or self-care (01) ==
LOC: ERS 09:22
DX: E86.0 Dehydration (principal); I50.9 Heart failure, unspecified; I95.9 Hypotension, unspecified; Z79.899 Other long term (current) drug therapy
CPT/HCPCS: 36415; 80053; 82550; 83690; 85025; 93005

== ENCOUNTER 2021-01-19 07:01 | Outpatient (CLI) | payer MEDICARE, OTHER ==
[2021-01-19] MEDS ORDERED: Iopamidol-370 76% 500 ML 1 ML ONE (08:52)
== END 2021-01-19 07:02 | disposition home or self-care (01) ==
LOC: BICCT 07:01
PROVIDERS: ATTEND Physician Assistant Medical
DX: K74.60 Unspecified cirrhosis of liver (principal); K86.81 Exocrine pancreatic insufficiency; K56.600 Partial intestinal obstruction, unspecified as to cause; D64.9 Anemia, unspecified; R19.7 Diarrhea, unspecified
CPT/HCPCS: 74177; 82565; Q9967

== ENCOUNTER 2021-07-11 11:16 | Inpatient (IN) | payer MEDICARE, OTHER ==
[~2021-07-11 11:16] MED LIST: Iopamidol-370 76% 500 ML 1 ML ONE
[2021-07-11] MEDS ORDERED: Heparin 1,000 UNITS/ML VIAL ONE (11:21)
[2021-07-11] MEDS ORDERED: Dextrose 50% Abboject 50 ML SYRINGE ONE (11:37)
[2021-07-11 12:03] LABS: #Monocytes 0.5 thou/uL (0.11-0.59); #Neutrophils 5.7 thou/uL (1.40-6.50); %Basophils 0.2 % (0.0-1.0); %Eosinophils 0.3 % (0.0-10.0); %Lymphocytes 13.2 % (21.0-51.0); %Monocytes 6.9 % (0.0-10.0); %Neutrophils 79.3 % (42.0-75.0); Hemoglobin 10.9 g/dL (14.0-18.0); Mean Corpuscular Hemoglobin 33.8 pg (27.0-31.0); Mean Corpuscular Volume 96.5 fL (78.0-98.0); Mean Platelet Volume 7.1 fL (7.4-10.4); Platelet Count 137 thou/uL (130-400); Red Blood Cell (RBC) Count 3.22 mill/uL (4.70-6.10); White Blood Cell (WBC) Count 7.2 thou/uL (4.8-10.8)
[2021-07-11 12:06] LABS: Bacteria/HPF 3+ HPF (None Seen); Bilirubin Negative (Negative); Blood, Urine 2+ (Negative); Clarity Extra Turbid (Clear); Glucose, Urine (Dipstick) Normal (Negative); Ketone, Urine Trace mg/dL (Negative); Leukocyte 500 Leu/uL (Negative); Nitrite Negative (Negative); Protein, Urine (Dipstick) 600 mg/dL (Neg-Trace); Specific Gravity, Urine 1.019 (1.002-1.036); Squamous Epithelial 0-3 HPF (0-3); Urobilinogen Normal mg/dL (Less than 2); pH, Urine 8.5 (5.0-9.0)
[2021-07-11 12:12] LABS: RBC/HPF 21-50 HPF (0-3); Yeast-Budding None Seen HPF (None Seen)
[2021-07-11 12:26] LABS: ALT (SGPT) 48 U/L (8-55); AST (SGOT) 72 U/L (5-34); Albumin 3.4 g/dL (3.4-4.8); Alkaline Phosphatase 90 U/L (40-110); Anion Gap 22 mmol/L (10-20); BUN (Urea Nitrogen) 66 mg/dL (8.4-25.7); Bilirubin, Total 0.6 mg/dL (0.2-1.2); Calc. Creatinine Clearance 0 mL/min (70-130); Calcium 7.2 mg/dL (7.8-10.44); Chloride 116 mmol/L (98-107); Globulin 2.8 g/dL (2.4-3.5); Glucose 63 mg/dL (83-110); Lipase 34 U/L (8-78); Potassium 4.5 mmol/L (3.5-5.1); Protein, Total 6.2 g/dL (5.8-8.1); Sodium 142 mmol/L (136-145)
[2021-07-11 12:32] LABS: Carbon Dioxide 9 mmol/L (23-31)
[2021-07-11 12:53] LABS: CKMB 7.1 ng/mL (0-6.6)
[2021-07-11] MEDS ORDERED: cefTRIAXone\\ROCEPHIN 2 GM VIAL ONE (13:54)
[2021-07-11 17:02] LABS: Troponin I 0.025 ng/mL (< 0.028)
[2021-07-11] MEDS ORDERED: Sodium Bicarbonate 150 MEQ in Dextrose 5% in Water 850 ML IV SCH (18:59)
[2021-07-11] MEDS ORDERED: Dextrose 50% Abboject 50 ML SYRINGE SLOW IVP PRN (18:59)
[2021-07-11] MEDS ORDERED: HumaLOG 300 UNITS/3 ML VIAL SC PRN (18:59)
[2021-07-11] MEDS ORDERED: Acetaminophen 650 MG Suppository PR PRN (18:59)
[2021-07-11 19:13] VITALS: BMI 19.5
[2021-07-11 21:04] LABS: Troponin I 0.033 ng/mL (< 0.028)
[2021-07-11 23:25] LABS: SARS-CoV-2 NAA Rapid Test Not Detected (NotDetected)
[2021-07-12 06:18] LABS: #Eosinphils 0.1 thou/uL (0.0-0.7); #Lymphocytes 0.9 thou/uL (1.20-3.40); #Monocytes 0.5 thou/uL (0.11-0.59); #Neutrophils 3.7 thou/uL (1.40-6.50); %Basophils 0.8 % (0.0-1.0); %Eosinophils 1.3 % (0.0-10.0); %Lymphocytes 17.5 % (21.0-51.0); %Monocytes 9.1 % (0.0-10.0); %Neutrophils 71.3 % (42.0-75.0); Mean Corpuscular HGB CONC 34.5 g/dL (32.0-36.0); Mean Corpuscular Hemoglobin 33.3 pg (27.0-31.0); Mean Corpuscular Volume 96.5 fL (78.0-98.0); Mean Platelet Volume 6.9 fL (7.4-10.4); Platelet Count 104 thou/uL (130-400); Platelet Morphology Comment Appears Decreased; White Blood Cell (WBC) Count 5.2 thou/uL (4.8-10.8)
[2021-07-12 06:22] LABS: Anion Gap 16 mmol/L (10-20); BUN (Urea Nitrogen) 58 mg/dL (8.4-25.7); Calc. Creatinine Clearance 34 mL/min (70-130); Calcium 6.5 mg/dL (7.8-10.44); Carbon Dioxide 11 mmol/L (23-31); Chloride 115 mmol/L (98-107); Glucose 80 mg/dL (83-110); Potassium 3.3 mmol/L (3.5-5.1); Sodium 139 mmol/L (136-145)
[2021-07-12] MEDS ORDERED: Non-Formulary Item 1 EACH (Lipase/Protease/Amylase [Creon Dr 36,000 Units] 1 CAPSULE Caps PO SCH (08:00)
[2021-07-12] MEDS: Enoxaparin Sodium 30 MG/0.3 ML SYRINGE SC SCH (09:56)
[2021-07-12] MEDS: Sodium Bicarbonate 150 MEQ in Dextrose 5% in Water 850 ML IV SCH (09:57)
[2021-07-12] MEDS: Pancrelipase DR 12,000 1 CAP PO SCH ×2 (12:39→17:18)
[2021-07-12] MEDS: cefTRIAXone\\ROCEPHIN 1 GM in Sodium Chloride 0.9% 100 ML IVPB SCH (16:21)
[2021-07-12] MEDS: SIMETHICONE 180 MG PO SCH (23:24)
[2021-07-13] MEDS: Sodium Bicarbonate 150 MEQ in Dextrose 5% in Water 850 ML IV SCH ×3 (00:22→10:14)
[2021-07-13 05:01] LABS: #Lymphocytes 0.6 thou/uL (1.20-3.40); #Monocytes 0.4 thou/uL (0.11-0.59); #Neutrophils 3.4 thou/uL (1.40-6.50); %Basophils 0.1 % (0.0-1.0); %Eosinophils 0.8 % (0.0-10.0); %Lymphocytes 13.3 % (21.0-51.0); %Monocytes 8.2 % (0.0-10.0); %Neutrophils 77.6 % (42.0-75.0); Hemoglobin 8.8 g/dL (14.0-18.0); Mean Corpuscular HGB CONC 33.6 g/dL (32.0-36.0); Mean Corpuscular Hemoglobin 32.5 pg (27.0-31.0); Mean Corpuscular Volume 96.8 fL (78.0-98.0); Mean Platelet Volume 7.2 fL (7.4-10.4); Platelet Count 101 thou/uL (130-400); RBC Distribution Width 13.7 % (11.5-14.5); Red Blood Cell (RBC) Count 2.71 mill/uL (4.70-6.10); White Blood Cell (WBC) Count 4.3 thou/uL (4.8-10.8)
[2021-07-13 05:27] LABS: Anion Gap 12 mmol/L (10-20); BUN (Urea Nitrogen) 55 mg/dL (8.4-25.7); Calc. Creatinine Clearance 42 mL/min (70-130); Calcium 6.4 mg/dL (7.8-10.44); Carbon Dioxide 24 mmol/L (23-31); Chloride 106 mmol/L (98-107); Glucose 125 mg/dL (83-110); Sodium 139 mmol/L (136-145)
[2021-07-13 05:30] LABS: Critical Call Chemistry 2NO.ML1; Magnesium 0.8 mg/dL (1.6-2.6)
[2021-07-13] MEDS ORDERED: Potassium Chloride 20 MEQ TAB PO SCH (08:00)
[2021-07-13] MEDS ORDERED: 1/2 NS w/KCL 20 mEq 1,000 ML IV SCH (08:30)
[2021-07-13] MEDS ORDERED: Magnesium 2 GM/50 ML 2 GM in Premix Bag 1 BAG IVPB SCH ×2 (09:30→20:15)
[2021-07-13] MEDS: Pancrelipase DR 12,000 1 CAP PO SCH ×3 (09:57→20:12)
[2021-07-13] MEDS: SIMETHICONE 180 MG PO SCH (09:58)
[2021-07-13] MEDS: Enoxaparin Sodium 30 MG/0.3 ML SYRINGE SC SCH (10:06)
[2021-07-13] MEDS ORDERED: MD-Gastroview 120 ML BOT ONE (10:32)
[2021-07-13] MEDS ORDERED: Morphine 4 MG/ML VIAL SLOW IVP PRN ×2 (10:36→17:49)
[2021-07-13] MEDS ORDERED: Acetaminophen 650 MG Suppository PR PRN (10:38)
[2021-07-13] MEDS ORDERED: Ondansetron ODT 4 MG TAB PO PRN (15:01)
[2021-07-13] MEDS ORDERED: Ondansetron PF 4 MG/2 ML Vial IVP PRN (15:02)
[2021-07-13] MEDS ORDERED: Ondansetron ODT 4 MG TAB SL PRN (17:00)
[2021-07-13 17:05] LABS: Potassium 3.4 mmol/L (3.5-5.1)
[2021-07-13 17:21] LABS: Magnesium 0.9 mg/dL (1.6-2.6)
[2021-07-13] MEDS: cefTRIAXone\\ROCEPHIN 1 GM in Sodium Chloride 0.9% 100 ML IVPB SCH ×2 (20:25→22:33)
[2021-07-13] MEDS: Potassium Chloride 20 MEQ in Lactated Ringer's 1,000 ML IV SCH ×2 (20:26→21:15)
[2021-07-13] MEDS: Aspirin 325 mg Enteric Coated Tablet PO SCH (22:34)
[2021-07-14 04:26] LABS: #Lymphocytes 0.6 thou/uL (1.20-3.40); #Monocytes 0.3 thou/uL (0.11-0.59); #Neutrophils 3.6 thou/uL (1.40-6.50); %Basophils 0.5 % (0.0-1.0); %Eosinophils 0.9 % (0.0-10.0); %Lymphocytes 12.9 % (21.0-51.0); %Monocytes 7.3 % (0.0-10.0); %Neutrophils 78.4 % (42.0-75.0); Hemoglobin 8.1 g/dL (14.0-18.0); Mean Corpuscular HGB CONC 33.7 g/dL (32.0-36.0); Mean Corpuscular Hemoglobin 32.7 pg (27.0-31.0); Mean Corpuscular Volume 97.2 fL (78.0-98.0); Mean Platelet Volume 7.1 fL (7.4-10.4); Platelet Count 78 thou/uL (130-400); RBC Distribution Width 13.3 % (11.5-14.5); Red Blood Cell (RBC) Count 2.48 mill/uL (4.70-6.10); White Blood Cell (WBC) Count 4.6 thou/uL (4.8-10.8)
[2021-07-14 04:34] LABS: INR-International Normal Ratio 1.4; Prothrombin Time 17.1 sec (12.0-14.7)
[2021-07-14 04:47] LABS: ALT (SGPT) 24 U/L (8-55); AST (SGOT) 30 U/L (5-34); Albumin 2.5 g/dL (3.4-4.8); Alkaline Phosphatase 58 U/L (40-110); Bilirubin, Direct 0.2 mg/dL (0.1-0.3); Bilirubin, Total 0.3 mg/dL (0.2-1.2); Protein, Total 4.4 g/dL (5.8-8.1)
[2021-07-14 04:50] LABS: Anion Gap 14 mmol/L (10-20); BUN (Urea Nitrogen) 48 mg/dL (8.4-25.7); Calc. Creatinine Clearance 38 mL/min (70-130); Calcium 6.3 mg/dL (7.8-10.44); Carbon Dioxide 24 mmol/L (23-31); Chloride 107 mmol/L (98-107); Glucose 71 mg/dL (83-110); Magnesium 1.5 mg/dL (1.6-2.6); Sodium 142 mmol/L (136-145)
[2021-07-14] MEDS ORDERED: Potassium Chloride 40 MEQ in Sodium Chloride 0.9% 250 ML 250 ML IVPB SCH (09:40)
[2021-07-14] MEDS ORDERED: Calcium Chloride 13.6 MEQ in Sodium Chloride 0.9% 100 ML IVPB SCH (09:45)
[2021-07-14] MEDS ORDERED: Magnesium Sulfate 4 GM in Sodium Chloride 0.9% 250 ML 250 ML IVPB SCH (09:45)
[2021-07-14] MEDS: Pancrelipase DR 12,000 1 CAP PO SCH ×2 (12:02→16:59)
[2021-07-14] MEDS: Enoxaparin Sodium 30 MG/0.3 ML SYRINGE SC SCH (12:02)
[2021-07-14] MEDS: Magnesium 2 GM/50 ML 2 GM in Premix Bag 1 BAG IVPB SCH ×2 (12:21→13:08)
[2021-07-14] MEDS: Dextrose 5% in Water 1,000 ML IV PRN (12:52)
[2021-07-14] MEDS: Potassium Chloride 20 MEQ in Lactated Ringer's 1,000 ML IV SCH ×2 (12:54→21:12)
[2021-07-14] MEDS ORDERED: Electrolyte Replacement Protocol FS PRN (16:00)
[2021-07-14 18:37] LABS: #Eosinphils 0.1 thou/uL (0.0-0.7); #Lymphocytes 0.6 thou/uL (1.20-3.40); #Monocytes 0.3 thou/uL (0.11-0.59); #Neutrophils 3.2 thou/uL (1.40-6.50); %Basophils 0.5 % (0.0-1.0); %Eosinophils 2.4 % (0.0-10.0); %Lymphocytes 13.8 % (21.0-51.0); %Monocytes 7.7 % (0.0-10.0); %Neutrophils 75.6 % (42.0-75.0); Mean Corpuscular Hemoglobin 32.9 pg (27.0-31.0); Mean Corpuscular Volume 99.8 fL (78.0-98.0); Mean Platelet Volume 7.2 fL (7.4-10.4); Platelet Count 90 thou/uL (130-400); RBC Distribution Width 13.6 % (11.5-14.5); Red Blood Cell (RBC) Count 2.74 mill/uL (4.70-6.10); White Blood Cell (WBC) Count 4.2 thou/uL (4.8-10.8)
[2021-07-14 18:54] LABS: Anion Gap 12 mmol/L (10-20); BUN (Urea Nitrogen) 36 mg/dL (8.4-25.7); Calc. Creatinine Clearance 54 mL/min (70-130); Calcium 7.2 mg/dL (7.8-10.44); Carbon Dioxide 25 mmol/L (23-31); Chloride 109 mmol/L (98-107); Glucose 91 mg/dL (83-110); Magnesium 2.6 mg/dL (1.6-2.6); Phosphorus 2.3 mg/dL (2.3-4.7); Potassium 3.7 mmol/L (3.5-5.1); Sodium 142 mmol/L (136-145)
[2021-07-14] MEDS: Aspirin 325 mg Enteric Coated Tablet PO SCH (19:57)
[2021-07-14] MEDS ORDERED: Potassium Phosphate 15 MMOL in Sodium Chloride 0.9% 250 ML 250 ML IVPB SCH (20:00)
[2021-07-14] MEDS: cefTRIAXone\\ROCEPHIN 1 GM in Sodium Chloride 0.9% 100 ML IVPB SCH (21:12)
[2021-07-14] MEDS ORDERED: Multivitamins, Adult 10 ML, TRACE ELEMENT CONCENTRATE 1 ML in D15W-AA 5% with Lytes 2,0... IV SCH (22:00)
[2021-07-14] MEDS ORDERED: D15W-AA 5% with Lytes 2,000 ML IV SCH (22:00)
[2021-07-15 04:54] LABS: #Eosinphils 0.2 thou/uL (0.0-0.7); #Lymphocytes 0.5 thou/uL (1.20-3.40); #Monocytes 0.2 thou/uL (0.11-0.59); #Neutrophils 2.9 thou/uL (1.40-6.50); %Basophils 0.8 % (0.0-1.0); %Eosinophils 3.9 % (0.0-10.0); %Lymphocytes 14.2 % (21.0-51.0); %Monocytes 6.3 % (0.0-10.0); %Neutrophils 74.7 % (42.0-75.0); Hemoglobin 8.3 g/dL (14.0-18.0); Mean Corpuscular HGB CONC 32.6 g/dL (32.0-36.0); Mean Corpuscular Hemoglobin 32.5 pg (27.0-31.0); Mean Corpuscular Volume 99.9 fL (78.0-98.0); Mean Platelet Volume 7.2 fL (7.4-10.4); Platelet Count 85 thou/uL (130-400); RBC Distribution Width 13.2 % (11.5-14.5); Red Blood Cell (RBC) Count 2.56 mill/uL (4.70-6.10); White Blood Cell (WBC) Count 3.8 thou/uL (4.8-10.8)
[2021-07-15 05:06] LABS: Phosphorus 2.5 mg/dL (2.3-4.7)
[2021-07-15 05:10] LABS: Anion Gap 9 mmol/L (10-20); BUN (Urea Nitrogen) 29 mg/dL (8.4-25.7); Calc. Creatinine Clearance 70 mL/min (70-130); Carbon Dioxide 25 mmol/L (23-31); Chloride 110 mmol/L (98-107); Glucose 64 mg/dL (83-110); Magnesium 2.3 mg/dL (1.6-2.6); Potassium 4.2 mmol/L (3.5-5.1); Sodium 140 mmol/L (136-145)
[2021-07-15] MEDS: Dextrose 5% in Water 1,000 ML IV PRN (05:54)
[2021-07-15] MEDS: Potassium Chloride 20 MEQ in Lactated Ringer's 1,000 ML IV SCH (06:06)
[2021-07-15] MEDS: Pancrelipase DR 12,000 1 CAP PO SCH ×3 (08:46→16:31)
[2021-07-15] MEDS: Enoxaparin Sodium 30 MG/0.3 ML SYRINGE SC SCH (08:47)
[2021-07-15] MEDS ORDERED: Dextrose 10% in Water 1,000 ML IV SCH (09:15)
[2021-07-15] MEDS: Multivitamins, Adult 10 ML, TRACE ELEMENT CONCENTRATE 1 ML in CLINIMIX E 5/20 2,000 ML IV SCH (14:39)
[2021-07-15] MEDS: cefTRIAXone\\ROCEPHIN 1 GM in Sodium Chloride 0.9% 100 ML IVPB SCH (20:43)
[2021-07-15] MEDS: Aspirin 325 MG TAB PO SCH (20:43)
[2021-07-16 05:46] LABS: ALT (SGPT) 20 U/L (8-55); AST (SGOT) 29 U/L (5-34); Albumin 2.3 g/dL (3.4-4.8); Alkaline Phosphatase 57 U/L (40-110); Anion Gap 9 mmol/L (10-20); BUN (Urea Nitrogen) 23 mg/dL (8.4-25.7); Bilirubin, Total 0.3 mg/dL (0.2-1.2); Calc. Creatinine Clearance 73 mL/min (70-130); Calcium 7.8 mg/dL (7.8-10.44); Carbon Dioxide 27 mmol/L (23-31); Chloride 105 mmol/L (98-107); Globulin 2.3 g/dL (2.4-3.5); Glucose 119 mg/dL (83-110); Magnesium 2.2 mg/dL (1.6-2.6); Phosphorus 2.6 mg/dL (2.3-4.7); Potassium 4.1 mmol/L (3.5-5.1); Protein, Total 4.6 g/dL (5.8-8.1); Sodium 137 mmol/L (136-145)
[2021-07-16] MEDS: Pancrelipase DR 12,000 1 CAP PO SCH ×3 (08:21→15:18)
[2021-07-16] MEDS ORDERED: Enoxaparin Sodium 40 MG/0.4 ML SYRINGE SC SCH (09:00)
[2021-07-16] MEDS ORDERED: Fat Emulsion 250 ML IVPB SCH (09:00)
[2021-07-16] MEDS: Multivitamins, Adult 10 ML, TRACE ELEMENT CONCENTRATE 1 ML in CLINIMIX E 5/20 2,000 ML IV SCH (14:37)
[2021-07-16] MEDS: Fat Emulsion 250 ML IVPB SCH (14:37)
[2021-07-16] MEDS: cefTRIAXone\\ROCEPHIN 1 GM in Sodium Chloride 0.9% 100 ML IVPB SCH (21:31)
[2021-07-16] MEDS: Aspirin 325 MG TAB PO SCH (21:32)
[2021-07-17 05:37] LABS: #Eosinphils 0.2 thou/uL (0.0-0.7); #Lymphocytes 0.4 thou/uL (1.20-3.40); #Monocytes 0.3 thou/uL (0.11-0.59); #Neutrophils 3.1 thou/uL (1.40-6.50); %Basophils 0.7 % (0.0-1.0); %Eosinophils 5.1 % (0.0-10.0); %Lymphocytes 9.1 % (21.0-51.0); %Monocytes 7.5 % (0.0-10.0); %Neutrophils 77.6 % (42.0-75.0); Hemoglobin 7.7 g/dL (14.0-18.0); Mean Corpuscular HGB CONC 32.4 g/dL (32.0-36.0); Mean Corpuscular Hemoglobin 32.9 pg (27.0-31.0); Mean Platelet Volume 7.4 fL (7.4-10.4); Platelet Count 88 thou/uL (130-400); RBC Distribution Width 12.8 % (11.5-14.5); Red Blood Cell (RBC) Count 2.34 mill/uL (4.70-6.10)
[2021-07-17 05:47] LABS: Anion Gap 7 mmol/L (10-20); BUN (Urea Nitrogen) 26 mg/dL (8.4-25.7); Calc. Creatinine Clearance 82 mL/min (70-130); Calcium 7.5 mg/dL (7.8-10.44); Carbon Dioxide 28 mmol/L (23-31); Chloride 106 mmol/L (98-107); Glucose 139 mg/dL (83-110); Magnesium 2.1 mg/dL (1.6-2.6); Potassium 3.7 mmol/L (3.5-5.1); Sodium 137 mmol/L (136-145)
[2021-07-17] MEDS ORDERED: Artificial Tear Sol 15 ML BOT EA EYE PRN (07:43)
[2021-07-17] MEDS ORDERED: Hydrocerin (Eucerin) Cream 120 gm Jar TOP PRN (07:43)
[2021-07-17] MEDS ORDERED: hydrALAZINE 20 MG/ML VIAL SLOW IVP PRN (07:43)
[2021-07-17] MEDS ORDERED: Cepastat Lozenges 1 LOZ PO PRN (07:43)
[2021-07-17] MEDS ORDERED: Sodium Chloride 0.65% Nasal 44 ML BOT EA NARE PRN (07:43)
[2021-07-17] MEDS ORDERED: Bisacodyl 10 MG SUPP PR PRN (07:43)
[2021-07-17] MEDS: Pancrelipase DR 12,000 1 CAP PO SCH ×3 (08:01→16:45)
[2021-07-17] MEDS: Pantoprazole 40 MG VIAL IVP SCH (09:07)
[2021-07-17] MEDS: Multivitamins, Adult 10 ML, TRACE ELEMENT CONCENTRATE 1 ML in D15W-AA 5% with Lytes 2,0... IV SCH (15:08)
[2021-07-17] MEDS: cefTRIAXone\\ROCEPHIN 1 GM in Sodium Chloride 0.9% 100 ML IVPB SCH (21:11)
[2021-07-18] MEDS: Aspirin 325 MG TAB PO SCH ×2 (00:54→21:08)
[2021-07-18 04:59] LABS: Hemoglobin 7.5 g/dL (14.0-18.0); Mean Corpuscular HGB CONC 32.3 g/dL (32.0-36.0); Mean Corpuscular Hemoglobin 32.4 pg (27.0-31.0); Mean Platelet Volume 7.3 fL (7.4-10.4); Platelet Count 94 thou/uL (130-400); RBC Distribution Width 12.8 % (11.5-14.5); Red Blood Cell (RBC) Count 2.32 mill/uL (4.70-6.10); White Blood Cell (WBC) Count 3.4 thou/uL (4.8-10.8)
[2021-07-18 05:04] LABS: ALT (SGPT) 11 U/L (8-55); AST (SGOT) 18 U/L (5-34); Albumin 1.9 g/dL (3.4-4.8); Alkaline Phosphatase 42 U/L (40-110); Anion Gap 8 mmol/L (10-20); BUN (Urea Nitrogen) 31 mg/dL (8.4-25.7); Bilirubin, Total 0.2 mg/dL (0.2-1.2); Calc. Creatinine Clearance 80 mL/min (70-130); Calcium 7.9 mg/dL (7.8-10.44); Carbon Dioxide 32 mmol/L (23-31); Chloride 103 mmol/L (98-107); Globulin 1.8 g/dL (2.4-3.5); Glucose 105 mg/dL (83-110); Phosphorus 2.8 mg/dL (2.3-4.7); Potassium 3.9 mmol/L (3.5-5.1); Protein, Total 3.7 g/dL (5.8-8.1); Sodium 139 mmol/L (136-145)
[2021-07-18 05:23] LABS: Band 6 % (5-11); Eosinophils 5 % (0-10); Lymphocytes 8 % (21-51); MDiff Complete? YES; Monocytes 11 % (0-10); Neutrophil 70 % (42-75); Platelet Morphology Comment Appears Decreased
[2021-07-18] MEDS ORDERED: Magnesium 2 GM/50 ML 2 GM in Premix Bag 1 BAG IVPB SCH (06:00)
[2021-07-18] MEDS: Pancrelipase DR 12,000 1 CAP PO SCH ×3 (08:45→16:50)
[2021-07-18] MEDS: Pantoprazole 40 MG VIAL IVP SCH (08:46)
[2021-07-18] MEDS: Multivitamins, Adult 10 ML, TRACE ELEMENT CONCENTRATE 1 ML in D15W-AA 5% with Lytes 2,0... IV SCH (14:45)
[2021-07-18] MEDS: cefTRIAXone\\ROCEPHIN 1 GM in Sodium Chloride 0.9% 100 ML IVPB SCH (21:11)
[2021-07-19] MEDS: Pancrelipase DR 12,000 1 CAP PO SCH ×3 (09:10→16:16)
[2021-07-19] MEDS: Pantoprazole 40 MG VIAL IVP SCH (09:10)
[2021-07-19 14:34] LABS: SARS-CoV-2 PCR by NAA Not Detected (NotDetected)
[2021-07-19] MEDS: Multivitamins, Adult 10 ML, TRACE ELEMENT CONCENTRATE 1 ML in D15W-AA 5% with Lytes 2,0... IV SCH (14:53)
[2021-07-19] MEDS: Fat Emulsion 250 ML IVPB SCH (14:53)
[2021-07-19] MEDS: Aspirin 325 MG TAB PO SCH (21:12)
[2021-07-20 05:03] LABS: #Eosinphils 0.1 thou/uL (0.0-0.7); #Lymphocytes 0.6 thou/uL (1.20-3.40); #Monocytes 0.4 thou/uL (0.11-0.59); #Neutrophils 2.1 thou/uL (1.40-6.50); %Basophils 1.1 % (0.0-1.0); %Eosinophils 4.3 % (0.0-10.0); %Lymphocytes 17.4 % (21.0-51.0); %Neutrophils 66.2 % (42.0-75.0); Hemoglobin 7.1 g/dL (14.0-18.0); Mean Corpuscular HGB CONC 33.1 g/dL (32.0-36.0); Mean Corpuscular Hemoglobin 33.3 pg (27.0-31.0); Mean Platelet Volume 6.9 fL (7.4-10.4); Platelet Count 101 thou/uL (130-400); RBC Distribution Width 12.7 % (11.5-14.5); Red Blood Cell (RBC) Count 2.15 mill/uL (4.70-6.10); White Blood Cell (WBC) Count 3.2 thou/uL (4.8-10.8)
[2021-07-20 05:21] LABS: Anion Gap 9 mmol/L (10-20); BUN (Urea Nitrogen) 29 mg/dL (8.4-25.7); Calc. Creatinine Clearance 90 mL/min (70-130); Calcium 7.8 mg/dL (7.8-10.44); Carbon Dioxide 29 mmol/L (23-31); Chloride 101 mmol/L (98-107); Glucose 97 mg/dL (83-110); Potassium 4.6 mmol/L (3.5-5.1); Sodium 134 mmol/L (136-145)
[2021-07-20] MEDS: Pancrelipase DR 12,000 1 CAP PO SCH ×4 (08:21→16:22)
[2021-07-20] MEDS: Pantoprazole 40 MG VIAL IVP SCH (08:21)
[2021-07-20] MEDS: Aspirin 325 MG TAB PO SCH (19:53)
[2021-07-21 04:58] LABS: #Eosinphils 0.1 thou/uL (0.0-0.7); #Lymphocytes 0.6 thou/uL (1.20-3.40); #Monocytes 0.4 thou/uL (0.11-0.59); #Neutrophils 2.2 thou/uL (1.40-6.50); %Eosinophils 3.7 % (0.0-10.0); %Lymphocytes 18.1 % (21.0-51.0); %Monocytes 11.3 % (0.0-10.0); %Neutrophils 65.9 % (42.0-75.0); Hemoglobin 6.9 g/dL (14.0-18.0); Mean Corpuscular HGB CONC 32.7 g/dL (32.0-36.0); Mean Corpuscular Hemoglobin 32.8 pg (27.0-31.0); Mean Platelet Volume 6.9 fL (7.4-10.4); Platelet Count 103 thou/uL (130-400); RBC Distribution Width 13.1 % (11.5-14.5); White Blood Cell (WBC) Count 3.4 thou/uL (4.8-10.8)
[2021-07-21 05:09] LABS: Anion Gap 8 mmol/L (10-20); BUN (Urea Nitrogen) 27 mg/dL (8.4-25.7); Calc. Creatinine Clearance 86 mL/min (70-130); Calcium 7.8 mg/dL (7.8-10.44); Carbon Dioxide 30 mmol/L (23-31); Chloride 102 mmol/L (98-107); Glucose 61 mg/dL (83-110); Potassium 4.8 mmol/L (3.5-5.1); Sodium 135 mmol/L (136-145)
[2021-07-21] MEDS: Pancrelipase DR 12,000 1 CAP PO SCH ×2 (09:29→11:36)
[2021-07-21 13:16] VITALS: BP 74/46; TEMP 97.2
== END 2021-07-21 12:30 | disposition home or self-care (01) | DRG 388 ==
LOC: ERS 11:16 → 2NO 15:40
PROVIDERS: ADMIT Internal Medicine; ATTEND Internal Medicine
PROC: 0D9670Z Drainage of Stomach with Drainage Device, Via Natural or Artificial Opening (ICD-10-PCS; principal; 2021-07-12)
PROC: 02HV33Z Insertion of Infusion Device into Superior Vena Cava, Percutaneous Approach (ICD-10-PCS; 2021-07-14)
PROC: B548ZZA Ultrasonography of Superior Vena Cava, Guidance (ICD-10-PCS; 2021-07-14)
DX: K56.600 Partial intestinal obstruction, unspecified as to cause (principal); E43 Unspecified severe protein-calorie malnutrition; T83.510A Infection and inflammatory reaction due to cystostomy catheter, initial encounter; N17.9 Acute kidney failure, unspecified; E87.2 Acidosis; K86.1 Other chronic pancreatitis; Z68.1 Body mass index [BMI] 19.9 or less, adult; N39.0 Urinary tract infection, site not specified; I50.22 Chronic systolic (congestive) heart failure; D61.818 Other pancytopenia; Z20.822 Contact with and (suspected) exposure to COVID-19; G43.909 Migraine, unspecified, not intractable, without status migrainosus; K74.60 Unspecified cirrhosis of liver; E11.22 Type 2 diabetes mellitus with diabetic chronic kidney disease; I25.10 Atherosclerotic heart disease of native coronary artery without angina pectoris; N18.9 Chronic kidney disease, unspecified; Y84.6 Urinary catheterization as the cause of abnormal reaction of the patient, or of later complication, without mention of misadventure at the time of the procedure; E86.0 Dehydration; I95.89 Other hypotension; K86.89 Other specified diseases of pancreas; K74.69 Other cirrhosis of liver; E87.6 Hypokalemia; E83.42 Hypomagnesemia; B96.4 Proteus (mirabilis) (morganii) as the cause of diseases classified elsewhere; D63.1 Anemia in chronic kidney disease; E11.649 Type 2 diabetes mellitus with hypoglycemia without coma; Z88.2 Allergy status to sulfonamides; Z88.1 Allergy status to other antibiotic agents; Z79.82 Long term (current) use of aspirin; Z79.899 Other long term (current) drug therapy; I25.2 Old myocardial infarction; Z90.49 Acquired absence of other specified parts of digestive tract
CPT/HCPCS: 36415; 36416; 36569; 74018; 74177; 74250; 80048; 80053; 80076; 81003; 81015; 82553; 82607; 82746; 83090; 83605; 83690; 83735; 83921; 84100; 84134; 84484; 85025; 85610; 87040; 87045; 87046; 87077; 87086; 87186; 87324; 87427; 87449; 93005; 96365; 96375; C1751; J0696; J1644; J2405; J3475; J3480; J3490; J7050; J7070; J7120; Q9963; Q9967; U0002; U0003; U0005

== ENCOUNTER 2021-07-27 14:02 | Inpatient (IN) | payer MEDICARE, OTHER ==
[2021-07-27] MEDS ORDERED: Ondansetron PF 4 MG/2 ML Vial ONE (14:17)
[2021-07-27 14:39] LABS: #Monocytes 0.5 thou/uL (0.11-0.59); #Neutrophils 4.7 thou/uL (1.40-6.50); %Basophils 0.5 % (0.0-1.0); %Eosinophils 0.1 % (0.0-10.0); %Lymphocytes 16.8 % (21.0-51.0); %Monocytes 7.2 % (0.0-10.0); %Neutrophils 75.4 % (42.0-75.0); Hemoglobin 10.2 g/dL (14.0-18.0); Mean Corpuscular HGB CONC 33.7 g/dL (32.0-36.0); Mean Corpuscular Hemoglobin 33.8 pg (27.0-31.0); Mean Platelet Volume 6.8 fL (7.4-10.4); Platelet Count 246 thou/uL (130-400); RBC Distribution Width 13.9 % (11.5-14.5); Red Blood Cell (RBC) Count 3.02 mill/uL (4.70-6.10); White Blood Cell (WBC) Count 6.2 thou/uL (4.8-10.8)
[2021-07-27] MEDS ORDERED: Cefepime 2 GM VIAL ONE (14:45)
[2021-07-27 14:52] LABS: Prothrombin Time 13.1 sec (12.0-14.7)
[2021-07-27 14:53] LABS: PTT 22.4 sec (22.9-36.1)
[2021-07-27 15:33] LABS: Albumin 3.2 g/dL (3.4-4.8); Anion Gap 18 mmol/L (10-20); BUN (Urea Nitrogen) 38 mg/dL (8.4-25.7); Bilirubin, Total 0.5 mg/dL (0.2-1.2); Calc. Creatinine Clearance 0 mL/min (70-130); Calcium 8.8 mg/dL (7.8-10.44); Carbon Dioxide 18 mmol/L (23-31); Chloride 105 mmol/L (98-107); Globulin 3.2 g/dL (2.4-3.5); Glucose 94 mg/dL (83-110); Potassium 4.4 mmol/L (3.5-5.1); Protein, Total 6.4 g/dL (5.8-8.1); Sodium 137 mmol/L (136-145)
[2021-07-27 15:34] LABS: ALT (SGPT) 40 U/L (8-55); AST (SGOT) 43 U/L (5-34); Alkaline Phosphatase 113 U/L (40-110); Lipase 25 U/L (8-78)
[2021-07-27] MEDS ORDERED: Vancomycin 1 GM/200 ML BAG ONE (15:48)
[2021-07-27 18:05] LABS: Bilirubin Negative (Negative); Blood, Urine Large (Negative); Glucose, Urine (Dipstick) Negative (Negative); Ketone, Urine Trace mg/dL (Negative); Leukocyte Moderate (Negative); Nitrite Negative (Negative); Protein, Urine (Dipstick) 100 mg/dL (Neg-Trace); Urobilinogen 0.2 mg/dL (Less than 2); pH, Urine 5.5 (5.0-9.0)
[2021-07-27 18:08] LABS: Clarity Cloudy (Clear); Specific Gravity, Urine 1.024 (1.002-1.036)
[2021-07-27 18:11] LABS: Bacteria/HPF 4+ HPF (None Seen); Squamous Epithelial 0-3 HPF (0-3)
[2021-07-27 18:34] LABS: Lactic Acid 1.7 mmol/L (0.5-2.2)
[2021-07-27 19:06] LABS: Troponin I 0.027 ng/mL (< 0.028)
[2021-07-27] MEDS ORDERED: Ondansetron PF 4 MG/2 ML Vial IVP PRN (19:29)
[2021-07-27] MEDS ORDERED: Sodium Chloride 0.9% 1,000 ML IV SCH (19:30)
[2021-07-27 20:32] VITALS: BMI 19.5
[2021-07-27 20:50] LABS: Troponin I 0.015 ng/mL (< 0.028)
[2021-07-27] MEDS ORDERED: Acetaminophen 325 MG TAB PO PRN (20:52)
[2021-07-27] MEDS ORDERED: Albumin 25% 25 GM/100 ML BOT IVPB SCH (21:00)
[2021-07-27] MEDS ORDERED: Midodrine HCl 5 MG TAB PO SCH (22:30)
[2021-07-28] MEDS ORDERED: Dextrose 5% in Water 1,000 ML IV PRN (04:05)
[2021-07-28] MEDS ORDERED: Dextrose 50% Abboject 50 ML SYRINGE SLOW IVP PRN (04:05)
[2021-07-28] MEDS: Albumin 25% 25 GM/100 ML BOT IVPB SCH (04:09)
[2021-07-28] MEDS: Sodium Chloride 0.9% 1,000 ML IV SCH ×2 (04:48→12:38)
[2021-07-28 05:11] LABS: #Lymphocytes 0.7 thou/uL (1.20-3.40); #Monocytes 0.5 thou/uL (0.11-0.59); #Neutrophils 5.5 thou/uL (1.40-6.50); %Basophils 0.5 % (0.0-1.0); %Eosinophils 0.2 % (0.0-10.0); %Lymphocytes 10.1 % (21.0-51.0); %Monocytes 7.3 % (0.0-10.0); Hemoglobin 7.9 g/dL (14.0-18.0); Mean Corpuscular HGB CONC 32.4 g/dL (32.0-36.0); Mean Corpuscular Hemoglobin 32.8 pg (27.0-31.0); Mean Platelet Volume 6.6 fL (7.4-10.4); Platelet Count 185 thou/uL (130-400); RBC Distribution Width 13.8 % (11.5-14.5); Red Blood Cell (RBC) Count 2.41 mill/uL (4.70-6.10); White Blood Cell (WBC) Count 6.7 thou/uL (4.8-10.8)
[2021-07-28] MEDS: cefTRIAXone\\ROCEPHIN 1 GM in Sodium Chloride 0.9% 100 ML IVPB SCH (05:19)
[2021-07-28 05:46] LABS: Anion Gap 19 mmol/L (10-20); BUN (Urea Nitrogen) 42 mg/dL (8.4-25.7); Calc. Creatinine Clearance 29 mL/min (70-130); Calcium 8.6 mg/dL (7.8-10.44); Carbon Dioxide 19 mmol/L (23-31); Chloride 107 mmol/L (98-107); Glucose 74 mg/dL (83-110); Potassium 4.2 mmol/L (3.5-5.1); Sodium 141 mmol/L (136-145)
[2021-07-28] MEDS: Dextrose 5 %-0.45 % NaCl 1,000 ML IV SCH ×2 (14:34→21:42)
[2021-07-29] MEDS: Albumin 25% 25 GM/100 ML BOT IVPB SCH (04:17)
[2021-07-29] MEDS: cefTRIAXone\\ROCEPHIN 1 GM in Sodium Chloride 0.9% 100 ML IVPB SCH (04:24)
[2021-07-29 05:11] LABS: #Lymphocytes 0.6 thou/uL (1.20-3.40); #Monocytes 0.6 thou/uL (0.11-0.59); #Neutrophils 6.1 thou/uL (1.40-6.50); %Basophils 0.2 % (0.0-1.0); %Eosinophils 0.2 % (0.0-10.0); %Lymphocytes 7.8 % (21.0-51.0); %Monocytes 8.4 % (0.0-10.0); %Neutrophils 83.4 % (42.0-75.0); Hemoglobin 7.9 g/dL (14.0-18.0); Mean Corpuscular HGB CONC 32.9 g/dL (32.0-36.0); Mean Corpuscular Hemoglobin 33.1 pg (27.0-31.0); Mean Platelet Volume 6.2 fL (7.4-10.4); Platelet Count 168 thou/uL (130-400); RBC Distribution Width 13.6 % (11.5-14.5); Red Blood Cell (RBC) Count 2.39 mill/uL (4.70-6.10); White Blood Cell (WBC) Count 7.3 thou/uL (4.8-10.8)
[2021-07-29 05:41] LABS: Anion Gap 13 mmol/L (10-20); BUN (Urea Nitrogen) 38 mg/dL (8.4-25.7); Calc. Creatinine Clearance 30 mL/min (70-130); Calcium 8.2 mg/dL (7.8-10.44); Carbon Dioxide 26 mmol/L (23-31); Chloride 106 mmol/L (98-107); Glucose 143 mg/dL (83-110); Potassium 3.3 mmol/L (3.5-5.1); Sodium 142 mmol/L (136-145)
[2021-07-29] MEDS ORDERED: FLU VACC QS2021-22(65YR UP)/PF 240 MCG/0.7 ML SYRINGE IM ONE (09:00)
[2021-07-29] MEDS: Dextrose 5 %-0.45 % NaCl 1,000 ML IV SCH ×2 (13:34→20:59)
[2021-07-29] MEDS: Ondansetron PF 4 MG/2 ML Vial IVP PRN (17:45)
[2021-07-30] MEDS: Ondansetron PF 4 MG/2 ML Vial IVP PRN ×2 (01:57→05:35)
[2021-07-30] MEDS: Dextrose 5 %-0.45 % NaCl 1,000 ML IV SCH (04:53)
[2021-07-30] MEDS: cefTRIAXone\\ROCEPHIN 1 GM in Sodium Chloride 0.9% 100 ML IVPB SCH (04:53)
[2021-07-30 05:04] LABS: #Eosinphils 0.1 thou/uL (0.0-0.7); #Lymphocytes 0.8 thou/uL (1.20-3.40); #Monocytes 0.5 thou/uL (0.11-0.59); #Neutrophils 4.8 thou/uL (1.40-6.50); %Basophils 0.3 % (0.0-1.0); %Eosinophils 1.2 % (0.0-10.0); %Lymphocytes 12.5 % (21.0-51.0); %Monocytes 7.8 % (0.0-10.0); %Neutrophils 78.2 % (42.0-75.0); Hemoglobin 8.7 g/dL (14.0-18.0); Mean Corpuscular HGB CONC 31.9 g/dL (32.0-36.0); Mean Corpuscular Hemoglobin 32.3 pg (27.0-31.0); Mean Platelet Volume 6.8 fL (7.4-10.4); Platelet Count 179 thou/uL (130-400); RBC Distribution Width 13.5 % (11.5-14.5); Red Blood Cell (RBC) Count 2.69 mill/uL (4.70-6.10); White Blood Cell (WBC) Count 6.1 thou/uL (4.8-10.8)
[2021-07-30 05:31] LABS: Anion Gap 12 mmol/L (10-20); BUN (Urea Nitrogen) 37 mg/dL (8.4-25.7); Calc. Creatinine Clearance 31 mL/min (70-130); Carbon Dioxide 29 mmol/L (23-31)
[2021-07-30 05:50] LABS: Calcium 8.2 mg/dL (7.8-10.44); Chloride 102 mmol/L (98-107); Potassium 3.1 mmol/L (3.5-5.1); Sodium 139 mmol/L (136-145)
[2021-07-30 05:51] LABS: Glucose 111 mg/dL (83-110)
[2021-07-30] MEDS ORDERED: Electrolyte Replacement Protocol 1 EACH FS SCH (09:00)
[2021-07-30] MEDS ORDERED: Potassium Chloride 40 MEQ in Sodium Chloride 0.9% 250 ML 250 ML IVPB SCH (09:45)
[2021-07-30 11:25] VITALS: BP 68/42; TEMP 98.6
== END 2021-07-30 12:46 | disposition hospice, inpatient (51) | DRG 389 ==
LOC: ERS 14:02 → 2NO 17:57
PROVIDERS: ADMIT Family Medicine; ATTEND Internal Medicine
DX: K56.600 Partial intestinal obstruction, unspecified as to cause (principal); I50.22 Chronic systolic (congestive) heart failure; E87.2 Acidosis; N17.9 Acute kidney failure, unspecified; E44.0 Moderate protein-calorie malnutrition; Z68.1 Body mass index [BMI] 19.9 or less, adult; Z20.822 Contact with and (suspected) exposure to COVID-19; Z66 Do not resuscitate; Z51.5 Encounter for palliative care; I95.89 Other hypotension; I25.10 Atherosclerotic heart disease of native coronary artery without angina pectoris; K74.69 Other cirrhosis of liver; K75.81 Nonalcoholic steatohepatitis (NASH); K86.89 Other specified diseases of pancreas; E86.0 Dehydration; D63.1 Anemia in chronic kidney disease; E11.22 Type 2 diabetes mellitus with diabetic chronic kidney disease; N18.30 Chronic kidney disease, stage 3 unspecified; I25.5 Ischemic cardiomyopathy; Z88.1 Allergy status to other antibiotic agents; Z88.2 Allergy status to sulfonamides; Z90.49 Acquired absence of other specified parts of digestive tract; Z98.890 Other specified postprocedural states; Z79.82 Long term (current) use of aspirin; Z79.899 Other long term (current) drug therapy; Z85.46 Personal history of malignant neoplasm of prostate; Z95.810 Presence of automatic (implantable) cardiac defibrillator
CPT/HCPCS: 36415; 36416; 71045; 74176; 80048; 80053; 81003; 81015; 83605; 83690; 83880; 84443; 84484; 85025; 85610; 85730; 86850; 86900; 86901; 87040; 87077; 87086; 93005; 96365; 96367; 96375; J0692; J0696; J2405; J3370; J3480; J3490; J7042; J7050; P9047

== ENCOUNTER 2021-07-30 12:40 | Inpatient (IN) | payer OTHER ==
[2021-07-30] MEDS ORDERED: Ondansetron PF 4 MG/2 ML Vial IVP PRN (13:45)
[2021-07-30] MEDS ORDERED: Senokot 8.6 MG TAB PO PRN (13:45)
[2021-07-30] MEDS ORDERED: Ondansetron ODT 4 MG TAB PO PRN (13:45)
[2021-07-30] MEDS ORDERED: chlorproMAZINE HCl 50 MG/2 ML AMP IM PRN ×2 (13:45)
[2021-07-30] MEDS ORDERED: Lorazepam 1 MG TAB PO PRN ×2 (13:45)
[2021-07-30] MEDS ORDERED: diphenhydrAMINE 50 MG/ML VIAL IVP PRN (13:45)
[2021-07-30] MEDS ORDERED: Morphine 10 MG/0.5 ML ORAL SYRINGE SL PRN (13:45)
[2021-07-30] MEDS ORDERED: Hyoscyamine Sulfate SL 0.125 mg Tablet SL PRN (13:45)
[2021-07-30] MEDS ORDERED: Promethazine HCl 25 MG SUPP PR PRN (13:45)
[2021-07-30] MEDS ORDERED: Morphine IR Tab 15 MG TAB PO PRN (13:45)
[2021-07-30] MEDS ORDERED: Milk Of Magnesia 30 ML UDCUP PO PRN (13:45)
[2021-07-30] MEDS ORDERED: Acetaminophen 325 MG TAB PO PRN (13:45)
[2021-07-30] MEDS ORDERED: Acetaminophen 650 MG Suppository PR PRN (13:45)
[2021-07-30] MEDS ORDERED: Loperamide HCl 2 MG CAP PO PRN (13:45)
[2021-07-30] MEDS ORDERED: diphenhydrAMINE 25 MG CAP PO PRN (13:45)
[2021-07-30] MEDS ORDERED: Lorazepam 2 MG/ML VIAL SLOW IVP PRN (13:45)
[2021-07-30] MEDS ORDERED: chlorproMAZINE HCl 25 MG in Sodium Chloride 0.9% 50 ML IVPB PRN (13:45)
[2021-07-30] MEDS ORDERED: Zolpidem Tartrate 5 MG TAB PO PRN (13:45)
[2021-07-30] MEDS ORDERED: Scopolamine 1.5 mg/72 hour Patch TOP PRN ×2 (13:45)
[2021-07-30] MEDS ORDERED: ALPRAZolam 0.25 MG TAB PO PRN (13:45)
[2021-07-30] MEDS: Morphine 4 MG/ML VIAL SLOW IVP PRN ×3 (15:39→23:22)
[2021-07-31 00:20] VITALS: BMI 19.0
[2021-07-31] MEDS: Morphine 4 MG/ML VIAL SLOW IVP PRN ×5 (03:01→23:39)
[2021-08-01] MEDS: Morphine 4 MG/ML VIAL SLOW IVP PRN ×3 (07:38→17:54)
[2021-08-02] MEDS: Morphine 4 MG/ML VIAL SLOW IVP PRN ×4 (01:08→18:43)
[2021-08-02] MEDS ORDERED: Cyclobenzaprine 10 MG TAB PO SCH (08:15)
[2021-08-02] MEDS ORDERED: Cyclobenzaprine 10 MG TAB PO PRN (15:00)
[2021-08-03] MEDS: Morphine 4 MG/ML VIAL SLOW IVP PRN ×5 (01:41→19:40)
[2021-08-03] MEDS: Lorazepam 2 MG/ML VIAL SLOW IVP PRN (19:44)
[2021-08-04] MEDS: Morphine 4 MG/ML VIAL SLOW IVP PRN ×5 (03:46→23:06)
[2021-08-04 19:24] VITALS: BP 78/50; TEMP 97.8
[2021-08-04] MEDS: Lorazepam 2 MG/ML VIAL SLOW IVP PRN (21:30)
== END 2021-08-05 00:58 | disposition expired | DRG 951 ==
LOC: 2NO 12:40 → T4-A 18:46
PROVIDERS: ADMIT Student in an Organized Health Care Education/Training Program; ATTEND Student in an Organized Health Care Education/Training Program
PROC: 0D9670Z Drainage of Stomach with Drainage Device, Via Natural or Artificial Opening (ICD-10-PCS; principal; 2021-07-30)
DX: Z51.5 Encounter for palliative care (principal); Z66 Do not resuscitate; K56.609 Unspecified intestinal obstruction, unspecified as to partial versus complete obstruction; I50.22 Chronic systolic (congestive) heart failure; N17.9 Acute kidney failure, unspecified; N39.0 Urinary tract infection, site not specified; E87.2 Acidosis; I25.10 Atherosclerotic heart disease of native coronary artery without angina pectoris; K75.81 Nonalcoholic steatohepatitis (NASH); K74.60 Unspecified cirrhosis of liver; K86.89 Other specified diseases of pancreas; E11.9 Type 2 diabetes mellitus without complications; I95.89 Other hypotension; Z95.810 Presence of automatic (implantable) cardiac defibrillator; Z79.899 Other long term (current) drug therapy; Z79.82 Long term (current) use of aspirin; Z88.1 Allergy status to other antibiotic agents; Z88.2 Allergy status to sulfonamides; Z90.49 Acquired absence of other specified parts of digestive tract; Z80.9 Family history of malignant neoplasm, unspecified; Z82.49 Family history of ischemic heart disease and other diseases of the circulatory system
CPT/HCPCS: 36416; J2060; J2270